=== PATIENT | female | born 1940 | race Caucasian/White ===

== ENCOUNTER 2019-06-22 08:48 | Day surgery (SDC) | payer MEDICARE, OTHER ==
[2019-06-22] MEDS ORDERED: Sodium Chloride 0.9% 1,000 ML IV SCH (09:15)
[2019-06-22] MEDS ORDERED: Propofol 200 MG/20 ML SDV ONE ×2 (09:48→10:55)
[2019-06-22] MEDS ORDERED: Midazolam 1 MG/ML 2 ML SDV ONE (09:48)
[2019-06-22] MEDS ORDERED: fentaNYL 100 MCG/2 ML SDV ONE (09:48)
[2019-06-22 12:41] VITALS: BP 130/66; PULSE 79
--- NOTE | 2019-06-22 15:11 | PROC ---
DATE OF PROCEDURE: 06/22/2019 SURGEON: Ronn Guevara MD PROCEDURE: Colonoscopy. PREPROCEDURE DIAGNOSIS: History of colon polyps. POSTPROCEDURE DIAGNOSES: 1. History of colon polyps. 2. Two small polyps at the hepatic flexure, removed using biopsy forceps. 3. Incomplete prep. DESCRIPTION OF PROCEDURE: Risk and goals of the procedure reviewed with the patient, as well as potential complications, and she gave informed consent to proceed. She was brought back to the endoscopy room. Sedation and monitoring provided by Perez Rasmussen CRNA, from the Anesthesia Service. A time-out was held prior to the procedure to confirm right site, right patient, and right procedure, as well as identify any potential concerns concerning the procedure, of which there were none. She was placed in a left lateral decubitus position. After adequate sedation was achieved, digital rectal exam was performed, which was unremarkable. Following this, a flexible colonoscope was placed and advanced out through the colon to the cecum. Cecum was identified by the appendiceal orifice as well as the ileocecal valve. The scope was then slowly withdrawn back through the length of the colon to the rectum where it was retroflexed, straightened, and removed. She was noted to have a large amount of residual liquid stool throughout the length of the colon. There were two 0.2 cm polyps noted in the hepatic flexure, both which were removed with biopsy forceps. She was noted to have internal hemorrhoids. No other mucosal polyps, masses, or lesions were seen, and the procedure was, otherwise, completed without complication. Ronn Guevara MD /[id number]
== END 2019-06-22 13:15 | disposition home or self-care (01) ==
LOC: JP.SDS 08:48
PROVIDERS: ATTEND Hospitalist
DX: Z12.11 Encounter for screening for malignant neoplasm of colon (principal); D12.3 Benign neoplasm of transverse colon; K64.8 Other hemorrhoids; I50.30 Unspecified diastolic (congestive) heart failure; I25.10 Atherosclerotic heart disease of native coronary artery without angina pectoris; K21.9 Gastro-esophageal reflux disease without esophagitis; Z86.010 Personal history of colon polyps
CPT/HCPCS: 45380; J2250; J2704; J3010; 88305

== ENCOUNTER 2019-09-14 21:05 | Emergency (ER) | payer MEDICARE ==
[2019-09-14] MEDS ORDERED: Acetaminophen 500 MG Tab PO ONE (21:45)
--- NOTE | 2019-09-14 21:51 | EDM.PDOC ---
ED HPI GENERAL MEDICAL PROBLEM - General Chief Complaint: Upper Extremity Injury/Pain Stated Complaint: FELL,HURT LEFT WRIST Time Seen by Provider: 09/14/19 21:40 Source of Information: Reports: Patient, Old Records History Limitations: Reports: No Limitations - History of Present Illness INITIAL COMMENTS - FREE TEXT/NARRATIVE: 79 yo female fell earlier today at [place] injuring her L wrist. She applied a splint to that wrist that she had at home. She walks with a cane. Lives alone. On her way into the ER tonight she fell again on stairs coming into the ER and incurred an injury to the dorsum of the R hand. Has not taken anything for pain relief. Is unsure about tetanus. Onset: Today Onset Date: 09/14/19 Duration: Hour(s):, Constant Location: Reports: Upper Extremity, Left, Upper Extremity, Right Quality: Reports: Ache Severity: Moderate Improves with: Reports: Rest Worsens with: Reports: Movement Context: Reports: Trauma Associated Symptoms: Reports: No Other Symptoms Treatments CHEF GERMAN: Reports: Other (see below) (splint) - Related Data Allergies Allergy/AdvReac Type Severity Reaction Status Date / Time iodine Allergy Other Verified 09/14/19 21:52 clindamycin AdvReac Mouth Sores Verified 09/14/19 21:52 morphine AdvReac Nausea and Verified 09/14/19 21:52 Vomiting naproxen sodium [From Aleve] AdvReac Dizziness Verified 09/14/19 21:52 procaine HCl [From Novocain] AdvReac Lightheaded Verified 09/14/19 21:52 ness Diagnostic Xray Materials AdvReac Nausea Uncoded 09/14/19 21:52 Home Meds: Home Meds Calcium Carbonate [Tums Extra Strength] 1,500 mg PO DAILY 07/09/14 [History] Cholecalciferol (Vitamin D3) [Vitamin D3] 400 units PO DAILY 07/09/14 [History] Flaxseed Oil [Flax Oil] 2,000 mg PO DAILY 07/09/14 [History] Multivitamin with Minerals [Multiple Vitamin] 1 tab PO DAILY 07/09/14 [History] Oxybutynin Chloride [Ditropan Xl] 5 mg PO DAILY 07/09/14 [History] timoloL maleate [Timoptic 0.5% Ophth Soln] 1 drop EYELF DAILY 07/08/15 [History] Aspirin [Adult Low Dose Aspirin EC] 81 mg PO DAILY 06/18/19 [History] Clobetasol [Clobetasol 0.05%] 1 dose TOP ASDIRECTED 06/18/19 [History] DULoxetine [Cymbalta] 60 mg PO DAILY 06/18/19 [History] Furosemide [Lasix] 20 mg PO ASDIRECTED 06/18/19 [History] Gabapentin [Neurontin] 100 mg PO BID 06/18/19 [History] Pantoprazole [ProTONIX] 40 mg PO DAILY 06/18/19 [History] Triamcinolone Acetonide [Triamcinolone Acetonide 0.025%] 1 dose TOP ASDIRECTED 06/18/19 [History] allopurinoL [Zyloprim] 100 mg PO DAILY 06/18/19 [History] atenoloL [Tenormin] 25 mg PO DAILY 06/18/19 [History] lisinopriL [Zestril] 2.5 mg PO DAILY 06/18/19 [History] Warfarin [Coumadin] 5 mg PO DAILY 06/22/19 [History] Past Medical History HEENT History: Reports: Cataract, Glaucoma, Impaired Vision Cardiovascular History: Reports: Blood Clots/VTE/DVT, CAD, High Cholesterol, Hypertension Respiratory History: Reports: PE Gastrointestinal History: Reports: Colon Polyp, Hemorrhoids Genitourinary History: Reports: Renal Calculus, Urinary Incontinence CARGO AGENT History: Reports: Musculoskeletal History: Reports: Arthritis, Back Pain, Chronic, Fracture, Fibromyalgia, Osteoarthritis Other Musculoskeletal History: Elbow fracture Psychiatric History: Reports: Anxiety, Depression Endocrine/Metabolic History: Reports: Obesity/BMI 30+, Osteoporosis Dermatologic History: Reports: Seborrheic Dermatitis Other Dermatologic History: Pt reports sensitive skin - Infectious Disease History Infectious Disease History: Reports: Chicken Pox, Shingles - Past Surgical History HEENT Surgical History: Reports: Cataract Surgery, Eye Surgery Cardiovascular Surgical History: Reports: None Respiratory Surgical History: Reports: None GI Surgical History: Reports: Colonoscopy Female Surgical History: Reports: Breast Biopsy, Hysterectomy Other Endocrine Surgeries/Procedures: has thyroid nodule that they are watching Musculoskeletal Surgical History: Reports: Knee Replacement Social & Family History - Family History Family Medical History: Noncontributory HEENT: Reports: None Cardiac: Reports: Hypertension Respiratory: Reports: None : Reports: Renal Disease/Insufficiency Musculoskeletal: Reports: Back pain, Chronic, Osteoporosis Neurological: Reports: Alzheimers Disease, Dementia Hematologic: Reports: Bleeding Disorder Oncologic: Reports: Breast, Prostate - Caffeine Use Caffeine Use: Reports: Coffee, Tea Review of Systems - Review of Systems Review Of Systems: See Below Constitutional: Reports: No Symptoms Musculoskeletal: Reports: Hand Pain (R hand), Joint Pain (L wrist) Skin: Reports: Wound (some minor scrapes R hand) Neurological: Reports: No Symptoms ED EXAM, GENERAL - Physical Exam Exam: See Below Exam Limited By: No Limitations General Appearance: Alert, WD/WN, No Apparent Distress Extremities: Pedal Edema (? L wrist swelling), Limited Range of Motion (L wrist due to pain. R hand with full ROM. ). No: Normal Inspection, Normal Range of Motion, Non-Tender, No Pedal Edema, Increased Warmth, Redness Neurological: Alert, Oriented, CN II-XII Intact, Normal Cognition, No Motor/ Sensory Deficits Psychiatric: Normal Affect, Normal Mood Skin Exam: Warm, Dry, Normal Color, No Rash, Wound/Incision (minor breaks in skin integrity dorsum of R hand. ) Course - Vital Signs Last Recorded V/S: Last Vital Signs Temp 36.8 C 09/14/19 22:07 Pulse 77 09/14/19 22:07 Resp 16 09/14/19 22:07 BP 134/59 L 09/14/19 22:07 Pulse Ox 100 09/14/19 22:07 - Orders/Labs/Meds Orders: Active Orders 24 hr Category Date Time Status Wrist Comp Min 3V Lt [CR] Stat Exams 09/14/19 21:15 Taken Bacitracin [Bacitracin Oint 1 GM] Med 09/14/19 22:20 Once 1 dose TOP ONETIME ONE Meds: Medications Discontinued Medications Generic Name Dose Route Start Last Admin Trade Name Freq PRN Reason Stop Dose Admin Acetaminophen 1,000 mg 09/14/19 21:45 09/14/19 21:50 Tylenol Extra Strength PO 09/14/19 21:46 1,000 mg ONETIME ONE Administration - Radiology Interpretation Free Text/Narrative:: L wrist X-ray-neg Departure - Departure Time of Disposition: 22:35 Disposition: Home, Self-Care 01 Condition: Fair Clinical Impression: Left wrist sprain Qualifiers: Encounter type: initial encounter Qualified Code(s): S63.502A - Unspecified sprain of left wrist, initial encounter Abrasion of right hand Qualifiers: Encounter type: initial encounter Qualified Code(s): S60.511A - Abrasion of right hand, initial encounter - Discharge Information *PRESCRIPTION DRUG MONITORING PROGRAM REVIEWED*: No *COPY OF PRESCRIPTION DRUG MONITORING REPORT IN PATIENT MENG: No Referrals: PCP,None [Primary Care Provider] - Forms: ED Department Discharge Additional Instructions: Wear your splint for support/protection. Take acetaminophen for pain relief as needed. A radiologist will read your X-rays tomorrow, if he sees a fracture someone will call you to make plans to refer you to an orthopedic surgeon. Keep your wounds clean to prevent infection. Sepsis Event Note - Focused Exam Vital Signs: Vital Signs Temp Pulse Resp BP Pulse Ox 09/14/19 22:07 36.8 C 77 16 134/59 L 100 Date Exam was Performed: 09/14/19 Time Exam was Performed: 22:21 - My Orders Last 24 Hours: My Active Orders 09/14/19 21:15 Wrist Comp Min 3V Lt [CR] Stat 09/14/19 22:20 Bacitracin [Bacitracin Oint 1 GM] 1 dose TOP ONETIME ONE - Assessment/Plan Last 24 Hours: My Active Orders 09/14/19 21:15 Wrist Comp Min 3V Lt [CR] Stat 09/14/19 22:20 Bacitracin [Bacitracin Oint 1 GM] 1 dose TOP ONETIME ONE
[2019-09-14 22:08] VITALS: BP 134/59; PULSE 77
[2019-09-14] MEDS ORDERED: Bacitracin Oint 1 GM U/D Packet TOP ONE (22:20)
--- NOTE | 2019-09-14 22:38 | CRLCR ---
INDICATION: Fall with wrist injury TECHNIQUE: Wrist radiograph 3 views left COMPARISON: None FINDINGS: Bone: Severe diffuse osteopenia is present. On the lateral exam, there are ill-defined osseous densities dorsal to the proximal row of the carpus. Joint: Mild chondrocalcinosis of the TFCC is seen. Mild osteoarthritis of the 1st carpometacarpal joint and scaphoid trapezial joint is seen. Soft tissue: Mild dorsal soft tissue swelling is seen along the wrist. No radiopaque foreign bodies are seen. IMPRESSION: 1. On the lateral exam, there are ill-defined osseous densities dorsal to the proximal row of the carpus. This may represent chondrocalcinosis but correlation with physical exam for focal tenderness in the dorsal ulnar region is recommended to exclude a triquetrum avulsion fracture. Dictated by Layo Gannon MD @ 09/14/2019 10:37:07 PM Dictated by: Layo Gannon MD @ 09/14/2019 22:37:10 (Electronically Signed)
== END 2019-09-14 22:48 | disposition home or self-care (01) ==
LOC: JP.ED 21:05
DX: S63.502A Unspecified sprain of left wrist, initial encounter (principal); S60.511A Abrasion of right hand, initial encounter; I25.10 Atherosclerotic heart disease of native coronary artery without angina pectoris; E78.00 Pure hypercholesterolemia, unspecified; I10 Essential (primary) hypertension; F41.9 Anxiety disorder, unspecified; F32.9 Major depressive disorder, single episode, unspecified; E66.9 Obesity, unspecified; Z88.5 Allergy status to narcotic agent; Z88.8 Allergy status to other drugs, medicaments and biological substances; Z88.1 Allergy status to other antibiotic agents; Z79.899 Other long term (current) drug therapy; Z79.01 Long term (current) use of anticoagulants; Z86.711 Personal history of pulmonary embolism; Z86.718 Personal history of other venous thrombosis and embolism; Z68.26 Body mass index [BMI] 26.0-26.9, adult; W10.9XXA Fall (on) (from) unspecified stairs and steps, initial encounter; Y92.481 Parking lot as the place of occurrence of the external cause
CPT/HCPCS: 73110; 99282; 99283; A9270

== ENCOUNTER 2019-09-15 20:28 | Observation (INO) | payer MEDICARE ==
[2019-09-15] MEDS ORDERED: Acetaminophen 325 MG Tab PO ONE (21:49)
--- NOTE | 2019-09-15 21:50 | EDM.PDOC ---
ED HPI GENERAL MEDICAL PROBLEM - General Chief Complaint: Upper Extremity Injury/Pain Stated Complaint: MEDICAL VIA [facility] Time Seen by Provider: 09/15/19 21:45 Source of Information: Reports: Patient History Limitations: Reports: No Limitations - History of Present Illness INITIAL COMMENTS - FREE TEXT/NARRATIVE: pt has fallen 3 times in the last 24 hours. The first time she fell when she was in the basement of [employer]. She had her wrist injured at that time. She was on the way in to the hosp and she fell and landed on her left hip. Tonight she was coming down the [place] at her house and she fell. Onset: Today Duration: Hour(s): Location: Reports: Other ( she really does not know why she is falling. r) Quality: Reports: Sharp, Stabbing Associated Symptoms: Reports: Weakness left wrist Pain Score (Numeric/FACES): 8 - Related Data Allergies Allergy/AdvReac Type Severity Reaction Status Date / Time iodine Allergy Other Verified 09/15/19 20:45 clindamycin AdvReac Mouth Sores Verified 09/15/19 20:45 morphine AdvReac Nausea and Verified 09/15/19 20:45 Vomiting naproxen sodium [From Aleve] AdvReac Dizziness Verified 09/15/19 20:45 procaine HCl [From Novocain] AdvReac Lightheaded Verified 09/15/19 20:45 ness Diagnostic Xray Materials AdvReac Nausea Uncoded 09/15/19 20:45 Home Meds: Home Meds Calcium Carbonate [Tums Extra Strength] 1,500 mg PO DAILY 07/09/14 [History] Cholecalciferol (Vitamin D3) [Vitamin D3] 400 units PO DAILY 07/09/14 [History] Flaxseed Oil [Flax Oil] 2,000 mg PO DAILY 07/09/14 [History] Multivitamin with Minerals [Multiple Vitamin] 1 tab PO DAILY 07/09/14 [History] Oxybutynin Chloride [Ditropan Xl] 5 mg PO DAILY 07/09/14 [History] timoloL maleate [Timoptic 0.5% Ophth Soln] 1 drop EYELF DAILY 07/08/15 [History] Aspirin [Adult Low Dose Aspirin EC] 81 mg PO DAILY 06/18/19 [History] Clobetasol [Clobetasol 0.05%] 1 dose TOP ASDIRECTED 06/18/19 [History] DULoxetine [Cymbalta] 60 mg PO DAILY 06/18/19 [History] Furosemide [Lasix] 20 mg PO ASDIRECTED 06/18/19 [History] Gabapentin [Neurontin] 100 mg PO BID 06/18/19 [History] Pantoprazole [ProTONIX] 40 mg PO DAILY 06/18/19 [History] Triamcinolone Acetonide [Triamcinolone Acetonide 0.025%] 1 dose TOP ASDIRECTED 06/18/19 [History] allopurinoL [Zyloprim] 100 mg PO DAILY 06/18/19 [History] atenoloL [Tenormin] 25 mg PO DAILY 06/18/19 [History] lisinopriL [Zestril] 2.5 mg PO DAILY 06/18/19 [History] Warfarin [Coumadin] 5 mg PO DAILY 06/22/19 [History] Past Medical History HEENT History: Reports: Cataract, Glaucoma, Impaired Vision Cardiovascular History: Reports: Blood Clots/VTE/DVT, CAD, High Cholesterol, Hypertension Respiratory History: Reports: PE Gastrointestinal History: Reports: Colon Polyp, Hemorrhoids Genitourinary History: Reports: Renal Calculus, Urinary Incontinence TILER History: Reports: Musculoskeletal History: Reports: Arthritis, Back Pain, Chronic, Fracture, Fibromyalgia, Osteoarthritis Other Musculoskeletal History: Elbow fracture Psychiatric History: Reports: Anxiety, Depression Endocrine/Metabolic History: Reports: Obesity/BMI 30+, Osteoporosis Hematologic History: Reports: Anticoagulation Therapy, Blood Transfusion(s) Dermatologic History: Reports: Seborrheic Dermatitis Other Dermatologic History: Pt reports sensitive skin - Infectious Disease History Infectious Disease History: Reports: Chicken Pox, Shingles - Past Surgical History HEENT Surgical History: Reports: Cataract Surgery, Eye Surgery Cardiovascular Surgical History: Reports: None Respiratory Surgical History: Reports: None GI Surgical History: Reports: Colonoscopy Female Surgical History: Reports: Breast Biopsy, Hysterectomy Other Endocrine Surgeries/Procedures: has thyroid nodule that they are watching Musculoskeletal Surgical History: Reports: Knee Replacement Social & Family History - Family History Family Medical History: Noncontributory HEENT: Reports: None Cardiac: Reports: Hypertension Respiratory: Reports: None : Reports: Renal Disease/Insufficiency Musculoskeletal: Reports: Back pain, Chronic, Osteoporosis Neurological: Reports: Alzheimers Disease, Dementia Hematologic: Reports: Bleeding Disorder Oncologic: Reports: Breast, Prostate - Tobacco Use Smoking Status *Q: Former Smoker Used Tobacco, but Quit: Yes Month/Year Tobacco Last Used: 20 years - Caffeine Use Caffeine Use: Reports: Coffee, Tea - Recreational Drug Use Recreational Drug Use: No Review of Systems - Review of Systems Review Of Systems: See Below Constitutional: Reports: No Symptoms Eyes: Reports: No Symptoms Ears: Reports: No Symptoms Nose: Reports: No Symptoms Mouth/Throat: Reports: No Symptoms Respiratory: Reports: No Symptoms Cardiovascular: Reports: No Symptoms GI/Abdominal: Reports: No Symptoms Genitourinary: Reports: No Symptoms Musculoskeletal: Reports: Other (pain left wrist and the left hip. ) Neurological: Reports: Other (pt has fell 3 times in the last 24 hours. ) Psychiatric: Reports: No Symptoms ED EXAM, GENERAL - Physical Exam Exam: See Below Free Text/Narrative:: pt is alert and able to give a good hiostory. She just does not understand why she is falling so much. Exam Limited By: No Limitations General Appearance: Alert, Anxious, Mild Distress, Other ( pupils are equal and reactive. ) Ears: Normal TMs Nose: Normal Inspection Throat/Mouth: Normal Inspection Head: Atraumatic Neck: Normal Inspection Respiratory/Chest: No Respiratory Distress Cardiovascular: Regular Rate, Rhythm GI/Abdominal: Soft, Non-Tender (Female) Exam: Deferred Rectal (Female) Exam: Deferred Back Exam: Normal Inspection Extremities: Normal Inspection Neurological: Alert, Oriented, Normal Cognition Psychiatric: Anxious Course - Vital Signs Last Recorded V/S: Last Vital Signs Temp 36.6 C 09/15/19 20:37 Pulse 72 09/15/19 20:37 Resp 16 09/15/19 20:37 BP 151/48 H 09/15/19 20:37 Pulse Ox 100 09/15/19 20:37 - Orders/Labs/Meds Orders: Active Orders 24 hr Category Date Time Status Cardiac Monitoring [RC] .As Directed Care 09/15/19 21:45 Active Orthostatic Vital Signs [RC] ASDIRECTED Care 09/15/19 21:46 Active INR,PT,PROTHROMBIN TIME [COAG] Stat Lab 09/15/19 23:44 Ordered Labs: Laboratory Tests 09/15/19 09/15/19 09/15/19 Range/Units 21:30 21:30 21:30 WBC 10.4 (4.5-11.0) K/uL RBC 2.95 L (3.30-5.50) M/uL Hgb 9.2 L D (12.0-15.0) g/dL Hct 27.7 L (36.0-48.0) % MCV 94 (80-98) fL MCH 31 (27-31) pg MCHC 33 (32-36) % Plt Count 227 (150-400) K/uL Neut % (Auto) 83 H (36-66) % Lymph % (Auto) 10 L (24-44) % [place] % (Auto) 6 (2-6) % Eos % (Auto) 1 L (2-4) % Baso % (Auto) 0 (0-1) % Sodium 137 L (140-148) mmol/L Potassium 3.8 (3.6-5.2) mmol/L Chloride 103 (100-108) mmol/L Carbon Dioxide 25 (21-32) mmol/L Anion Gap 12.8 (5.0-14.0) mmol/L BUN 22 H (7-18) mg/dL Creatinine 1.0 (0.6-1.0) mg/dL Est Cr Clr Drug Dosing 42.56 mL/min Estimated GFR (MDRD) 54 L (>60) Glucose 110 H (74-106) mg/dL Calcium 8.8 (8.5-10.1) mg/dL Iron 20 L (50-170) ug/dL TIBC 228 L (250-450) ug/dl % Saturation 9 L (20-55) % Total Bilirubin 0.9 D (0.2-1.0) mg/dL AST 15 (15-37) U/L ALT 16 (12-78) U/L Alkaline Phosphatase 60 (46-116) U/L Total Protein 6.3 L (6.4-8.2) g/dL Albumin 3.0 L (3.4-5.0) g/dL Globulin 3.3 (2.3-3.5) g/dL Albumin/Globulin Ratio 0.9 L (1.2-2.2) Urine Color (YELLOW) Urine Appearance (CLEAR) Urine pH (5.0-8.0) Ur Specific [place] (1.008-1.030) Urine Protein (NEGATIVE) mg/dL Urine Glucose (UA) (NEGATIVE) mg/dL Urine Ketones (NEGATIVE) mg/dL Urine Occult Blood (NEGATIVE) Urine Nitrite (NEGATIVE) Urine Bilirubin (NEGATIVE) Urine Urobilinogen (0.2-1.0) EU/dL Ur Leukocyte Esterase (NEGATIVE) Urine RBC (0-5) Urine WBC (0-5) Ur Epithelial Cells Amorphous Sediment Urine Bacteria Urine Mucus Urine Other 09/15/19 Range/Units 23:02 WBC (4.5-11.0) K/uL RBC (3.30-5.50) M/uL Hgb (12.0-15.0) g/dL Hct (36.0-48.0) % MCV (80-98) fL MCH (27-31) pg MCHC (32-36) % Plt Count (150-400) K/uL Neut % (Auto) (36-66) % Lymph % (Auto) (24-44) % [place] % (Auto) (2-6) % Eos % (Auto) (2-4) % Baso % (Auto) (0-1) % Sodium (140-148) mmol/L Potassium (3.6-5.2) mmol/L Chloride (100-108) mmol/L Carbon Dioxide (21-32) mmol/L Anion Gap (5.0-14.0) mmol/L BUN (7-18) mg/dL Creatinine (0.6-1.0) mg/dL Est Cr Clr Drug Dosing mL/min Estimated GFR (MDRD) (>60) Glucose (74-106) mg/dL Calcium (8.5-10.1) mg/dL Iron (50-170) ug/dL TIBC (250-450) ug/dl % Saturation (20-55) % Total Bilirubin (0.2-1.0) mg/dL AST (15-37) U/L ALT (12-78) U/L Alkaline Phosphatase (46-116) U/L Total Protein (6.4-8.2) g/dL Albumin (3.4-5.0) g/dL Globulin (2.3-3.5) g/dL Albumin/Globulin Ratio (1.2-2.2) Urine Color Yellow (YELLOW) Urine Appearance Slightly cloudy A (CLEAR) Urine pH 6.0 (5.0-8.0) Ur Specific [place] 1.020 (1.008-1.030) Urine Protein Negative (NEGATIVE) mg/dL Urine Glucose (UA) Negative (NEGATIVE) mg/dL Urine Ketones Negative (NEGATIVE) mg/dL Urine Occult Blood Negative (NEGATIVE) Urine Nitrite Negative (NEGATIVE) Urine Bilirubin Negative (NEGATIVE) Urine Urobilinogen 1.0 (0.2-1.0) EU/dL Ur Leukocyte Esterase Small H (NEGATIVE) Urine RBC 0-5 (0-5) Urine WBC 0-5 (0-5) Ur Epithelial Cells Few Amorphous Sediment Not seen Urine Bacteria Few Urine Mucus Not seen Urine Other Meds: Medications Discontinued Medications Generic Name Dose Route Start Last Admin Trade Name Freq PRN Reason Stop Dose Admin Acetaminophen 650 mg 09/15/19 21:49 09/15/19 22:03 Tylenol PO 09/15/19 21:50 650 mg NOW ONE Administration - Re-Assessments/Exams Free Text/Narrative Re-Assessment/Exam: 09/15/19 23:52 pt had a cat scan of the head that was normal. She is having alot of difficulty moving. She has a large hematoma of her left hip but she dioes not have a fracture of the left hip or pelvis. She has alot of swelling in the left wrist area. She was seen last nite and was told she had a sprain and was placed in a splint. pt ids having major drops in her bp with standiong and may have the need for medication readjustment. She does live alone and she can not go home until she is more stable. Ortho needs to see her fractured wrist and care for it. She is alos anemic and is iron deficient. Departure - Departure Time of Disposition: 00:02 Disposition: Admitted As Inpatient 67 Condition: Fair Clinical Impression: Orthostatic hypotension, Anemia, Iron deficiency, Fracture of distal end of left radius, Fracture of ulnar styloid, Hematoma of left hip, Elevated INR - Discharge Information Referrals: PCP,None [Primary Care Provider] - Forms: ED Department Discharge Care Plan Goals: admit to Dr Gonsalez. Sepsis Event Note - Evaluation Sepsis Screening Result: No Definite Risk - Focused Exam Vital Signs: Vital Signs Temp Pulse Resp BP Pulse Ox 09/15/19 20:37 36.6 C 72 16 151/48 H 100 09/15/19 20:31 36.6 C 72 16 151/48 H 100 Date Exam was Performed: 09/15/19 Time Exam was Performed: 23:46 - My Orders Last 24 Hours: My Active Orders 09/15/19 21:45 Cardiac Monitoring [RC] .As Directed 09/15/19 21:46 Orthostatic Vital Signs [RC] ASDIRECTED 09/15/19 23:44 INR,PT,PROTHROMBIN TIME [COAG] Stat - Assessment/Plan Last 24 Hours: My Active Orders 09/15/19 21:45 Cardiac Monitoring [RC] .As Directed 09/15/19 21:46 Orthostatic Vital Signs [RC] ASDIRECTED 09/15/19 23:44 INR,PT,PROTHROMBIN TIME [COAG] Stat
--- NOTE | 2019-09-15 22:51 | CRLCT ---
INDICATION: head injury from falls TECHNIQUE: CT Head without i.v. contrast. COMPARISON: None FINDINGS: CSF space: Unremarkable for age. Brain: No evidence of mass, acute infarction or hemorrhage is seen. No mass-effect or midline shift is seen. Mild diffuse cortical atrophy is noted. The brain parenchyma is otherwise normal in appearance with preservation of the harden-white matter junction. Calvarium: The visualized paranasal sinuses are well aerated. The mastoid air cells are clear. The visualized orbits are grossly unremarkable. The calvarium is unremarkable in appearance with no fractures identified. IMPRESSION: 1. No evidence of acute infarction, intracranial hemorrhage, or mass-effect seen. Please note that all CT scans at this facility use dose modulation, iterative reconstruction, and/or weight-based dosing when appropriate to reduce radiation dose to as low as reasonably achievable. Dictated by: Layo Gannon MD @ 09/15/2019 22:50:23 (Electronically Signed)
--- NOTE | 2019-09-15 22:55 | CRLCT ---
INDICATION: Wrist pain with recent falls. COMPARISON: Plain film 14 Sep 2019. TECHNIQUE: Multi detector imaging centered on the left wrist with axial coronal and sagittal reformats. FINDINGS: Osteopenia. Acute to subacute appearing curvilinear fracture through the base of the radial styloid entering the radiocarpal joint at the scaphoid fossa. No step-off or significant articular cortex diastasis. Diffuse prominent stippled mineralization of synovium through the radiocarpal joint, intrinsic ligaments and intercarpal articulation of the wrist. Moderately severe osteoarthritis narrowing, radial subluxation osteophytes and small juxta-articular ossicles of the 1st carpal metacarpal joint. Slightly widened triscaphe joint with subarticular sclerosis in all 3 articulating bones. Some intervening hazy mineralized synovium. No definite erosions. Mild diffuse subcutaneous soft tissue edema. No focal hematoma. No evident mass. IMPRESSION: 1. Acute to subacute nondisplaced fracture of the radial styloid with intra-articular extension of the radiocarpal joint. 2. 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 3. Osteopenia. 4. Severe osteoarthritis 1st carpometacarpal joint. Please note that all CT scans at this facility use dose modulation, iterative reconstruction, and/or weight-based dosing when appropriate to reduce radiation dose to as low as reasonably achievable. Dictated by Benjy Vásquez MD @ Sep 16 2019 8:38AM Signed by Dr. Benjy Vásquez @ Sep 16 2019 8:42AM
--- NOTE | 2019-09-15 22:57 | CRLCR ---
Indication: Frequent falls, bruising and large hematoma over left hip Technique: Frontal view of the pelvis and two views of the left hip. Comparison: None Findings: The pelvic ring and proximal femora are intact. The right femoroacetabular joint is anatomically aligned. There is stranding of the subcutaneous tissues overlying the left proximal femur, likely representing edema and hematoma. Impression : No evidence of pelvic or proximal femoral fracture. Dictated by Aston Cardona MD @ Sep 15 2019 10:51PM Signed by Dr. Aston Cardona @ Sep 15 2019 10:55PM
[2019-09-16] MEDS ORDERED: Sodium Chloride 0.9% 1,000 ML IV SCH
--- NOTE | 2019-09-16 01:41 | PCM.HP.2 ---
H&P History of Present Illness - General Date of Service: 09/16/19 Admit Problem/Dx: Admission Diagnosis/Problem Admission Diagnosis/Problem Syncope Source of Information: Patient, Provider History Limitations: Reports: No Limitations - History of Present Illness Initial Comments - Free Text/Narative: CC: I got so dizzy HPI: Wanda presents to the emergency room today after an episode of syncope. This was her third fall in the past 24 hours. The first fall yesterday did not have preceding symptoms. She thinks she may have lost her balance. She had a second 1 yesterday when trying to climb the stairs and blames this just on not holding onto the railing. She did sustain a left wrist injury with the first fall and a left hip injury with a second fall. X-ray imaging of the left wrist was thought to be negative last night. She did sustain a hematoma to the left hip last night. Today she had a fall at home. After getting out of bed she became very dizzy and collapsed on the floor. She did not hit her head and did not lose consciousness. She continues to have moderate achy pain in the left wrist. This is worse anytime she tries to lift or carry anything. She has been using Tylenol with some improvement in the pain. Pain is not getting any better. No complaints of headache, shortness of breath, abdominal pain or nausea. Work-up in the emergency room revealed no evidence for fracture of the left hip or pelvis. A CT scan of the left wrist revealed a fracture of the distal radius. Laboratory studies fairly unremarkable. Orthostatic vital signs were positive with a significant drop in blood pressure and rise in heart rate with standing. She will be admitted for hydration and monitoring of her vital signs as well as orthopedic consultation. left wrist Pain Score (Numeric/FACES): 8 - Related Data Allergies/Adverse Reactions: Allergies Allergy/AdvReac Type Severity Reaction Status Date / Time iodine Allergy Other Verified 09/15/19 20:45 clindamycin AdvReac Mouth Sores Verified 09/15/19 20:45 morphine AdvReac Nausea and Verified 09/15/19 20:45 Vomiting naproxen sodium [From Aleve] AdvReac Dizziness Verified 09/15/19 20:45 procaine HCl [From Novocain] AdvReac Lightheaded Verified 09/15/19 20:45 ness Diagnostic Xray Materials AdvReac Nausea Uncoded 05/19/20 20:45 Home Medications: Home Meds Calcium Carbonate [Tums Extra Strength] 1,500 mg PO DAILY 07/09/14 [History] Cholecalciferol (Vitamin D3) [Vitamin D3] 400 units PO DAILY 07/09/14 [History] Flaxseed Oil [Flax Oil] 2,000 mg PO DAILY 07/09/14 [History] Multivitamin with Minerals [Multiple Vitamin] 1 tab PO DAILY 07/09/14 [History] Oxybutynin Chloride [Ditropan Xl] 5 mg PO DAILY 07/09/14 [History] timoloL maleate [Timoptic 0.5% Ophth Soln] 1 drop EYELF DAILY 07/08/15 [History] Aspirin [Adult Low Dose Aspirin EC] 81 mg PO DAILY 06/18/19 [History] Clobetasol [Clobetasol 0.05%] 1 dose TOP ASDIRECTED 06/18/19 [History] DULoxetine [Cymbalta] 60 mg PO DAILY 06/18/19 [History] Furosemide [Lasix] 20 mg PO ASDIRECTED 06/18/19 [History] Gabapentin [Neurontin] 100 mg PO BID 06/18/19 [History] Pantoprazole [ProTONIX] 40 mg PO DAILY 06/18/19 [History] Triamcinolone Acetonide [Triamcinolone Acetonide 0.025%] 1 dose TOP ASDIRECTED 06/18/19 [History] allopurinoL [Zyloprim] 100 mg PO DAILY 06/18/19 [History] lisinopriL [Zestril] 2.5 mg PO DAILY 06/18/19 [History] Warfarin [Coumadin] 5 mg PO DAILY 06/22/19 [History] Spironolactone [Aldactone] 12.5 mg PO DAILY 09/16/19 [History] Past Medical History HEENT History: Reports: Cataract, Glaucoma, Impaired Vision Cardiovascular History: Reports: Blood Clots/VTE/DVT, CAD, High Cholesterol, Hypertension Respiratory History: Reports: PE Gastrointestinal History: Reports: Colon Polyp, Hemorrhoids Genitourinary History: Reports: Renal Calculus, Urinary Incontinence [employer] History: Reports: Musculoskeletal History: Reports: Arthritis, Back Pain, Chronic, Fracture, Fibromyalgia, Osteoarthritis Other Musculoskeletal History: Elbow fracture Psychiatric History: Reports: Anxiety, Depression Endocrine/Metabolic History: Reports: Obesity/BMI 30+, Osteoporosis Hematologic History: Reports: Anticoagulation Therapy, Blood Transfusion(s) Dermatologic History: Reports: Seborrheic Dermatitis Other Dermatologic History: Pt reports sensitive skin - Infectious Disease History Infectious Disease History: Reports: Chicken Pox, Shingles - Past Surgical History HEENT Surgical History: Reports: Cataract Surgery, Eye Surgery Cardiovascular Surgical History: Reports: None Respiratory Surgical History: Reports: None GI Surgical History: Reports: Colonoscopy Female Surgical History: Reports: Breast Biopsy, Hysterectomy Other Endocrine Surgeries/Procedures: has thyroid nodule that they are watching Musculoskeletal Surgical History: Reports: Knee Replacement Social & Family History - Family History Family Medical History: Noncontributory HEENT: Reports: None Cardiac: Reports: Hypertension Respiratory: Reports: None : Reports: Renal Disease/Insufficiency Musculoskeletal: Reports: Back pain, Chronic, Osteoporosis Neurological: Reports: Alzheimers Disease, Dementia Hematologic: Reports: Bleeding Disorder Oncologic: Reports: Breast, Prostate - Tobacco Use Smoking Status *Q: Former Smoker Used Tobacco, but Quit: Yes Month/Year Tobacco Last Used: 20 years - Caffeine Use Caffeine Use: Reports: Coffee, Tea - Recreational Drug Use Recreational Drug Use: No H&P Review of Systems - Review of Systems: Review Of Systems: See Below Free Text/Narrative: A complete 12 point review of systems was obtained. Pertinent positives and negatives are noted in the history of present illness. All other systems were reviewed and were negative except as noted. Exam - Exam Exam: See Below - Vital Signs Vital Signs: Last Vital Signs Temp 36.6 C 09/15/19 20:37 Pulse 72 09/15/19 20:37 Resp 16 09/15/19 20:37 BP 151/48 H 09/15/19 20:37 Pulse Ox 100 09/15/19 20:37 Orthostatic Blood Pressure [ 88/55 Standing] Orthostatic Blood Pressure [ 118/60 Sitting] Orthostatic Blood Pressure [ 127/62 Supine] Weight: 72.575 kg - Exam Quality Assessment: No: Supplemental Oxygen General: Alert, Oriented, Cooperative. No: Mild Distress HEENT: Conjunctiva Clear, Mucosa Moist & [place]. No: Scleral Icterus Neck: Supple, Trachea Midline Lungs: Clear to Auscultation, Normal Respiratory Effort Cardiovascular: Regular Rate, Regular Rhythm, Systolic Murmur GI/Abdominal Exam: Normal Bowel Sounds, Soft, Non-Tender, No Distention Extremities: No Pedal Edema. No: Increased Warmth Peripheral Pulses: 2+: Dorsalis Pedis (L), Dorsalis Pedis (R) Skin: Warm, Dry, Ecchymosis (Right elbow, left hand, right third finger, large hematoma left hip, approximately 10 x 12 cm with overlying bruise) Neuro Extensive - Mental Status: Alert, Oriented x3, Nl Response to Commands Neuro Extensive - Motor, Sensory, Reflexes: No: Dysarthria, Abnormal Motor, Tremor Psychiatric: Alert, Normal Affect - Patient Data Lab Results Last 24 hrs: Laboratory Results - last 24 hr 09/15/19 09/15/19 09/15/19 Range/Units 21:30 21:30 21:30 WBC 10.4 (4.5-11.0) K/uL RBC 2.95 L (3.30-5.50) M/uL Hgb 9.2 L D (12.0-15.0) g/dL Hct 27.7 L (36.0-48.0) % MCV 94 (80-98) fL MCH 31 (27-31) pg MCHC 33 (32-36) % Plt Count 227 (150-400) K/uL Neut % (Auto) 83 H (36-66) % Lymph % (Auto) 10 L (24-44) % [place] % (Auto) 6 (2-6) % Eos % (Auto) 1 L (2-4) % Baso % (Auto) 0 (0-1) % PT (9.5-12.0) sec INR (0.80-1.20) Sodium 137 L (140-148) mmol/L Potassium 3.8 (3.6-5.2) mmol/L Chloride 103 (100-108) mmol/L Carbon Dioxide 25 (21-32) mmol/L Anion Gap 12.8 (5.0-14.0) mmol/L BUN 22 H (7-18) mg/dL Creatinine 1.0 (0.6-1.0) mg/dL Est Cr Clr Drug Dosing 42.56 mL/min Estimated GFR (MDRD) 54 L (>60) Glucose 110 H (74-106) mg/dL Calcium 8.8 (8.5-10.1) mg/dL Iron 20 L (50-170) ug/dL TIBC 228 L (250-450) ug/dl % Saturation 9 L (20-55) % Total Bilirubin 0.9 D (0.2-1.0) mg/dL AST 15 (15-37) U/L ALT 16 (12-78) U/L Alkaline Phosphatase 60 (46-116) U/L Total Protein 6.3 L (6.4-8.2) g/dL Albumin 3.0 L (3.4-5.0) g/dL Globulin 3.3 (2.3-3.5) g/dL Albumin/Globulin Ratio 0.9 L (1.2-2.2) Urine Color (YELLOW) Urine Appearance (CLEAR) Urine pH (5.0-8.0) Ur Specific [place] (1.008-1.030) Urine Protein (NEGATIVE) mg/dL Urine Glucose (UA) (NEGATIVE) mg/dL Urine Ketones (NEGATIVE) mg/dL Urine Occult Blood (NEGATIVE) Urine Nitrite (NEGATIVE) Urine Bilirubin (NEGATIVE) Urine Urobilinogen (0.2-1.0) EU/dL Ur Leukocyte Esterase (NEGATIVE) Urine RBC (0-5) Urine WBC (0-5) Ur Epithelial Cells Amorphous Sediment Urine Bacteria Urine Mucus Urine Other 09/15/19 09/15/19 Range/Units 22:30 23:02 WBC (4.5-11.0) K/uL RBC (3.30-5.50) M/uL Hgb (12.0-15.0) g/dL Hct (36.0-48.0) % MCV (80-98) fL MCH (27-31) pg MCHC (32-36) % Plt Count (150-400) K/uL Neut % (Auto) (36-66) % Lymph % (Auto) (24-44) % [place] % (Auto) (2-6) % Eos % (Auto) (2-4) % Baso % (Auto) (0-1) % PT 40.0 H (9.5-12.0) sec INR 4.01 H* (0.80-1.20) Sodium (140-148) mmol/L Potassium (3.6-5.2) mmol/L Chloride (100-108) mmol/L Carbon Dioxide (21-32) mmol/L Anion Gap (5.0-14.0) mmol/L BUN (7-18) mg/dL Creatinine (0.6-1.0) mg/dL Est Cr Clr Drug Dosing mL/min Estimated GFR (MDRD) (>60) Glucose (74-106) mg/dL Calcium (8.5-10.1) mg/dL Iron (50-170) ug/dL TIBC (250-450) ug/dl % Saturation (20-55) % Total Bilirubin (0.2-1.0) mg/dL AST (15-37) U/L ALT (12-78) U/L Alkaline Phosphatase (46-116) U/L Total Protein (6.4-8.2) g/dL Albumin (3.4-5.0) g/dL Globulin (2.3-3.5) g/dL Albumin/Globulin Ratio (1.2-2.2) Urine Color Yellow (YELLOW) Urine Appearance Slightly cloudy A (CLEAR) Urine pH 6.0 (5.0-8.0) Ur Specific [place] 1.020 (1.008-1.030) Urine Protein Negative (NEGATIVE) mg/dL Urine Glucose (UA) Negative (NEGATIVE) mg/dL Urine Ketones Negative (NEGATIVE) mg/dL Urine Occult Blood Negative (NEGATIVE) Urine Nitrite Negative (NEGATIVE) Urine Bilirubin Negative (NEGATIVE) Urine Urobilinogen 1.0 (0.2-1.0) EU/dL Ur Leukocyte Esterase Small H (NEGATIVE) Urine RBC 0-5 (0-5) Urine WBC 0-5 (0-5) Ur Epithelial Cells Few Amorphous Sediment Not seen Urine Bacteria Few Urine Mucus Not seen Urine Other Result Diagrams: 09/15/19 21:30 09/15/19 21:30 Imaging Impressions Last 24 hrs: Head CT-no acute findings Left wrist CT-images were personally reviewed-there is evidence for a fracture of the left distal radius Pelvis x-ray with femurs-no evidence for hip or pelvis fracture Sepsis Event Note - Evaluation Sepsis Screening Result: No Definite Risk - Focused Exam Vital Signs: Vital Signs Temp Pulse Resp BP Pulse Ox 09/15/19 20:37 36.6 C 72 16 151/48 H 100 09/15/19 20:31 36.6 C 72 16 151/48 H 100 Date Exam was Performed: 09/16/19 Time Exam was Performed: 01:36 *Q Meaningful Use (ADM) - VTE Risk Assess *Q Each Risk Factor Represents 1 Point: Obesity ( BMI > 25 kg/m2) Total Score 1 Point Risk Factors: 1 Each Risk Factor Represents 2 Points: None Total Score 2 Point Risk Factors: 0 Each Risk Factor Represents 3 Points: Age 75 Years or Greater, History of DVT/PE Total Score 3 Point Risk Factors: 6 Each Risk Factor Represents 5 Points: None Total Score 5 Point Risk Factors: 0 Venous Thromboembolism Risk Factor Score *Q: 7 - Problem List (1) Syncope and collapse SNOMED Code(s): 705740331 ICD Code: R55 - SYNCOPE AND COLLAPSE Status: Acute Current Visit: Yes (2) Orthostatic hypotension SNOMED Code(s): 64103442 ICD Code: I95.1 - ORTHOSTATIC HYPOTENSION Status: Acute Current Visit: Yes (3) Hematoma of left hip SNOMED Code(s): 95297844845818120 ICD Code: S70.02XA - CONTUSION OF LEFT HIP, INITIAL ENCOUNTER Status: Acute Current Visit: Yes Qualifiers: Encounter type: initial encounter Qualified Code(s): S70.02XA - Contusion of left hip, initial encounter (4) Anemia due to blood loss, acute SNOMED Code(s): 404283358 ICD Code: D62 - ACUTE POSTHEMORRHAGIC ANEMIA Status: Acute Current Visit : Yes (5) Fracture of distal end of left radius SNOMED Code(s): 991101444 ICD Code: S52.502A - UNSP FRACTURE OF THE LOWER END OF LEFT RADIUS, INIT Status: Acute Current Visit: Yes Qualifiers: Encounter type: initial encounter Fracture type: closed Fracture morphology: unspecified fracture morphology Qualified Code(s): S52.502A - Unspecified fracture of the lower end of left radius, initial encounter for closed fracture (6) Elevated INR SNOMED Code(s): 170926254 ICD Code: R79.1 - ABNORMAL COAGULATION PROFILE Status: Acute Current Visit: Yes Problem List Initiated/Reviewed/Updated: Yes Orders Last 24hrs: Active Orders 24 hr Category Date Time Status Patient Status Manage Transfer [TRANSFER] Routine ADT 09/16/19 01:29 Ordered Cardiac Monitoring [RC] .As Directed Care 09/15/19 21:45 Active EKG Documentation Completion [RC] ASDIRECTED Care 09/15/19 23:47 Active Orthostatic Vital Signs [RC] ASDIRECTED Care 09/15/19 21:46 Active TSH ULTRASENSITIVE [CHEM] Stat Lab 09/15/19 23:56 Ordered Sodium Chloride 0.9% [Normal Saline] 1,000 ml Med 09/16/19 00:00 Active IV ASDIRECTED Resuscitation Status Routine Resus Stat 09/16/19 01:30 Ordered EKG 12 Lead [EK] Routine Ther 09/15/19 23:47 Ordered Medication Orders Sodium Chloride (Normal Saline) 1,000 mls @ 300 mls/hr IV ASDIRECTED FLOYD Stop: 09/16/19 03:19 Last Admin: 09/16/19 01:31 Dose: 300 mls/hr Assessment/Plan Comment:: ASSESSMENT AND PLAN - Syncope and collapse-secondary to orthostatic hypotension. I suspect this is related to her use of diuretics recently. No evidence for infection. Could be contribution from fluid losses well. -1 L of IV fluids -Discontinue diuretics -Hemoglobin in the morning -Repeat orthostatic vital signs in the morning Left hip hematoma-secondary to fall and complicated by anemia due to blood loss. Pain tolerable. -Pain control -Hemoglobin in the morning Left distal radius fracture-secondary to fall yesterday. X-ray yesterday was read as normal but CT scan did not definitively show a fracture today. -Continue splint for tonight -Consult with orthopedic clinic in the morning for splinting/casting History of bilateral pulmonary emboli-chronically anticoagulated. INR still elevated. -Hold warfarin today and recheck INR Essential hypertension-blood pressure normal but with significant orthostatic change we will need to make some changes to her regimen. To start with we will stop the spironolactone. Maintenance issues - - DVT prophylaxis -warfarin - GI prophylaxis -PPI - Nutrition -regular - Khan catheter -not indicated CODE STATUS -full code Admission justification -patient will be referred observation status for symptomatic management, repeat orthostatic vital signs, orthopedic consultation Disposition -I would anticipate discharge home after the hospital stay Primary care physician -Dr Christian Gonsalez M.D. - Mortality Measure Prognosis:: Good
[2019-09-16] MEDS ORDERED: Ondansetron 4 MG/2 ML SDV IV PRN (01:53)
[2019-09-16] MEDS ORDERED: Magnesium Hydroxide 400 MG/5 ML Susp 30 ML Cup PO PRN (01:53)
[2019-09-16] MEDS ORDERED: traMADol 50 MG Tab PO PRN (01:53)
[2019-09-16] MEDS ORDERED: Ondansetron 4 MG Tab.DIS PO PRN (01:53)
[2019-09-16] MEDS ORDERED: LORazepam 2 MG/ML SDV IVPUSH PRN (01:53)
[2019-09-16] MEDS ORDERED: Melatonin 3 MG Tab PO PRN (01:53)
[2019-09-16] MEDS: GABAPENTIN 100 MG PO SCH ×2 (08:03→21:02)
[2019-09-16] MEDS: Oxybutynin 5 MG Tab PO SCH ×2 (08:03→21:02)
[2019-09-16] MEDS: Allopurinol 100 MG Tab PO SCH (08:03)
[2019-09-16] MEDS: Aspirin 81 MG Tab.EC PO SCH (08:03)
[2019-09-16] MEDS: DULoxetine 30 MG Cap PO SCH (08:04)
[2019-09-16] MEDS: Pantoprazole 40 MG Tab.CR PO SCH (08:04)
[2019-09-16] MEDS ORDERED: Timolol Maleate 0.5% Ophth Soln 5 ML Bottle EYELF SCH (09:00)
[2019-09-16] MEDS ORDERED: Non-Formulary Medication 1 Each (Warfarin [Coumadin] 5 MG) PO SCH (09:00)
[2019-09-16] MEDS: Timolol Maleate 0.5% Ophth Soln 5 ML Bottle EYELF SCH (11:33)
--- NOTE | 2019-09-16 15:19 | PCM.PN ---
- General Info Date of Service: 09/16/19 Subjective Update: No acute events since admission. Vital signs stable. Mild dizziness when standing but not as severe as yesterday. Some left wrist pain but this is a little better. Some bilateral hip pain but this is better. Still has large hematomas on both hips. Hemoglobin did drop down to 7.8. Functional Status: Reports: Pain Controlled, Tolerating Diet - Patient Data Vitals - Most Recent: Last Vital Signs Temp 37.2 C 09/16/19 14:50 Pulse 93 09/16/19 14:50 Resp 18 09/16/19 14:50 BP 111/45 L 09/16/19 14:50 Pulse Ox 94 L 09/16/19 14:50 Orthostatic Blood Pressure [ 88/55 Standing] Orthostatic Blood Pressure [ 118/60 Sitting] Orthostatic Blood Pressure [ 127/62 Supine] Weight - Most Recent: 74.843 kg I&O - Last 24 Hours: Intake & Output 09/16/19 09/16/19 09/16/19 06:59 14:59 22:59 Intake Total 1000 360 Output Total 600 Balance 400 360 Lab Results Last 24 Hours: Laboratory Results - last 24 hr 09/15/19 09/15/19 09/15/19 Range/Units 21:30 21:30 21:30 WBC 10.4 (4.5-11.0) K/uL RBC 2.95 L (3.30-5.50) M/uL Hgb 9.2 L D (12.0-15.0) g/dL Hct 27.7 L (36.0-48.0) % MCV 94 (80-98) fL MCH 31 (27-31) pg MCHC 33 (32-36) % Plt Count 227 (150-400) K/uL Neut % (Auto) 83 H (36-66) % Lymph % (Auto) 10 L (24-44) % [place] % (Auto) 6 (2-6) % Eos % (Auto) 1 L (2-4) % Baso % (Auto) 0 (0-1) % PT (9.5-12.0) sec INR (0.80-1.20) Sodium 137 L (140-148) mmol/L Potassium 3.8 (3.6-5.2) mmol/L Chloride 103 (100-108) mmol/L Carbon Dioxide 25 (21-32) mmol/L Anion Gap 12.8 (5.0-14.0) mmol/L BUN 22 H (7-18) mg/dL Creatinine 1.0 (0.6-1.0) mg/dL Est Cr Clr Drug Dosing 42.56 mL/min Estimated GFR (MDRD) 54 L (>60) Glucose 110 H (74-106) mg/dL Calcium 8.8 (8.5-10.1) mg/dL Iron 20 L (50-170) ug/dL TIBC 228 L (250-450) ug/dl % Saturation 9 L (20-55) % Total Bilirubin 0.9 D (0.2-1.0) mg/dL AST 15 (15-37) U/L ALT 16 (12-78) U/L Alkaline Phosphatase 60 (46-116) U/L Total Protein 6.3 L (6.4-8.2) g/dL Albumin 3.0 L (3.4-5.0) g/dL Globulin 3.3 (2.3-3.5) g/dL Albumin/Globulin Ratio 0.9 L (1.2-2.2) TSH, Ultra Sensitive (0.358-3.740) uIU/mL Urine Color (YELLOW) Urine Appearance (CLEAR) Urine pH (5.0-8.0) Ur Specific [place] (1.008-1.030) Urine Protein (NEGATIVE) mg/dL Urine Glucose (UA) (NEGATIVE) mg/dL Urine Ketones (NEGATIVE) mg/dL Urine Occult Blood (NEGATIVE) Urine Nitrite (NEGATIVE) Urine Bilirubin (NEGATIVE) Urine Urobilinogen (0.2-1.0) EU/dL Ur Leukocyte Esterase (NEGATIVE) Urine RBC (0-5) Urine WBC (0-5) Ur Epithelial Cells Amorphous Sediment Urine Bacteria Urine Mucus Urine Other 09/15/19 09/15/19 09/15/19 Range/Units 22:30 23:02 23:56 WBC (4.5-11.0) K/uL RBC (3.30-5.50) M/uL Hgb (12.0-15.0) g/dL Hct (36.0-48.0) % MCV (80-98) fL MCH (27-31) pg MCHC (32-36) % Plt Count (150-400) K/uL Neut % (Auto) (36-66) % Lymph % (Auto) (24-44) % [place] % (Auto) (2-6) % Eos % (Auto) (2-4) % Baso % (Auto) (0-1) % PT 40.0 H (9.5-12.0) sec INR 4.01 H* (0.80-1.20) Sodium (140-148) mmol/L Potassium (3.6-5.2) mmol/L Chloride (100-108) mmol/L Carbon Dioxide (21-32) mmol/L Anion Gap (5.0-14.0) mmol/L BUN (7-18) mg/dL Creatinine (0.6-1.0) mg/dL Est Cr Clr Drug Dosing mL/min Estimated GFR (MDRD) (>60) Glucose (74-106) mg/dL Calcium (8.5-10.1) mg/dL Iron (50-170) ug/dL TIBC (250-450) ug/dl % Saturation (20-55) % Total Bilirubin (0.2-1.0) mg/dL AST (15-37) U/L ALT (12-78) U/L Alkaline Phosphatase (46-116) U/L Total Protein (6.4-8.2) g/dL Albumin (3.4-5.0) g/dL Globulin (2.3-3.5) g/dL Albumin/Globulin Ratio (1.2-2.2) TSH, Ultra Sensitive 0.520 (0.358-3.740) uIU/mL Urine Color Yellow (YELLOW) Urine Appearance Slightly cloudy A (CLEAR) Urine pH 6.0 (5.0-8.0) Ur Specific [place] 1.020 (1.008-1.030) Urine Protein Negative (NEGATIVE) mg/dL Urine Glucose (UA) Negative (NEGATIVE) mg/dL Urine Ketones Negative (NEGATIVE) mg/dL Urine Occult Blood Negative (NEGATIVE) Urine Nitrite Negative (NEGATIVE) Urine Bilirubin Negative (NEGATIVE) Urine Urobilinogen 1.0 (0.2-1.0) EU/dL Ur Leukocyte Esterase Small H (NEGATIVE) Urine RBC 0-5 (0-5) Urine WBC 0-5 (0-5) Ur Epithelial Cells Few Amorphous Sediment Not seen Urine Bacteria Few Urine Mucus Not seen Urine Other 09/16/19 09/16/19 Range/Units 07:24 07:24 WBC (4.5-11.0) K/uL RBC (3.30-5.50) M/uL Hgb 7.8 L (12.0-15.0) g/dL Hct (36.0-48.0) % MCV (80-98) fL MCH (27-31) pg MCHC (32-36) % Plt Count (150-400) K/uL Neut % (Auto) (36-66) % Lymph % (Auto) (24-44) % [place] % (Auto) (2-6) % Eos % (Auto) (2-4) % Baso % (Auto) (0-1) % PT 37.6 H (9.5-12.0) sec INR 3.75 H (0.80-1.20) Sodium (140-148) mmol/L Potassium (3.6-5.2) mmol/L Chloride (100-108) mmol/L Carbon Dioxide (21-32) mmol/L Anion Gap (5.0-14.0) mmol/L BUN (7-18) mg/dL Creatinine (0.6-1.0) mg/dL Est Cr Clr Drug Dosing mL/min Estimated GFR (MDRD) (>60) Glucose (74-106) mg/dL Calcium (8.5-10.1) mg/dL Iron (50-170) ug/dL TIBC (250-450) ug/dl % Saturation (20-55) % Total Bilirubin (0.2-1.0) mg/dL AST (15-37) U/L ALT (12-78) U/L Alkaline Phosphatase (46-116) U/L Total Protein (6.4-8.2) g/dL Albumin (3.4-5.0) g/dL Globulin (2.3-3.5) g/dL Albumin/Globulin Ratio (1.2-2.2) TSH, Ultra Sensitive (0.358-3.740) uIU/mL Urine Color (YELLOW) Urine Appearance (CLEAR) Urine pH (5.0-8.0) Ur Specific [place] (1.008-1.030) Urine Protein (NEGATIVE) mg/dL Urine Glucose (UA) (NEGATIVE) mg/dL Urine Ketones (NEGATIVE) mg/dL Urine Occult Blood (NEGATIVE) Urine Nitrite (NEGATIVE) Urine Bilirubin (NEGATIVE) Urine Urobilinogen (0.2-1.0) EU/dL Ur Leukocyte Esterase (NEGATIVE) Urine RBC (0-5) Urine WBC (0-5) Ur Epithelial Cells Amorphous Sediment Urine Bacteria Urine Mucus Urine Other Med Orders - Current: Current Medications Acetaminophen (Tylenol) 650 mg PO Q4H PRN PRN Reason: Pain (Mild 1-3)/fever Allopurinol (Zyloprim) 100 mg PO DAILY [facility] Last Admin: 09/16/19 08:03 Dose: 100 mg Aspirin (Halfprin) 81 mg PO DAILY [facility] Last Admin: 09/16/19 08:03 Dose: 81 mg Duloxetine HCl (Cymbalta) 60 mg PO DAILY [facility] Last Admin: 09/16/19 08:04 Dose: 60 mg Gabapentin (Neurontin) 100 mg PO BID [facility] Last Admin: 09/16/19 08:03 Dose: 100 mg Lorazepam (Ativan) 0.5 mg IVPUSH Q4H PRN PRN Reason: Nausea/Vomiting Magnesium Hydroxide (Milk Of Magnesia) 30 ml PO Q12H PRN PRN Reason: Constipation Melatonin (Melatonin) 9 mg PO BEDTIME PRN PRN Reason: sleep Ondansetron HCl (Zofran Odt) 4 mg PO Q6H PRN PRN Reason: Nausea able to take PO Ondansetron HCl (Zofran) 4 mg IV Q6H PRN PRN Reason: Nausea/Vomiting Oxybutynin Chloride (Oxybutynin) 2.5 mg PO BID [facility] Last Admin: 09/16/19 08:03 Dose: 2.5 mg Pantoprazole Sodium (Protonix) 40 mg PO ACBREAKFAST [facility] Last Admin: 09/16/19 08:04 Dose: 40 mg Senna/Docusate Sodium (Senna Plus) 1 tab PO BID PRN PRN Reason: Constipation Timolol Maleate (Timoptic 0.5% Ophth Soln) 0 ml EYELF DAILY [facility] Last Admin: 09/16/19 11:33 Dose: Not Given Tramadol HCl (Ultram) 50 mg PO Q6H PRN PRN Reason: Pain (moderate 4-6) Discontinued Medications Acetaminophen (Tylenol) 650 mg PO NOW ONE Stop: 09/15/19 21:50 Last Admin: 09/15/19 22:03 Dose: 650 mg Sodium Chloride (Normal Saline) 1,000 mls @ 300 mls/hr IV ASDIRECTED [facility] Stop: 09/16/19 03:19 Last Admin: 09/16/19 01:31 Dose: 300 mls/hr Timolol Maleate (Timoptic 0.5% Ophth Soln) 0 ml EYELF DAILY [facility] - Exam Quality Assessment: No: Supplemental Oxygen General: Alert, Oriented, Cooperative, No Acute Distress Lungs: Normal Respiratory Effort Cardiovascular: Regular Rate, Regular Rhythm GI/Abdominal Exam: Soft, No Distention Extremities: No Pedal Edema, Other (Left arm is in a splint) Skin: Warm, Dry, Ecchymosis (Right elbow, right third finger, left hand, both hips) Psy/Mental Status: Alert, Normal Affect Sepsis Event Note - Evaluation Sepsis Screening Result: No Definite Risk - Focused Exam Vital Signs: Vital Signs Temp Pulse Resp BP Pulse Ox 09/16/19 14:50 37.2 C 93 18 111/45 L 94 L 09/16/19 10:25 36.9 C 85 18 114/57 L 98 09/16/19 07:52 112 H 18 118/56 L 98 09/16/19 04:10 36.8 C 105 H 16 142/51 H 97 Date Exam was Performed: 09/16/19 Time Exam was Performed: 15:14 - Problem List & Annotations (1) Syncope and collapse SNOMED Code(s): 188681183 Code(s): R55 - SYNCOPE AND COLLAPSE Status: Acute Current Visit: Yes (2) Orthostatic hypotension SNOMED Code(s): 73881913 Code(s): I95.1 - ORTHOSTATIC HYPOTENSION Status: Acute Current Visit: Yes (3) Hematoma of left hip SNOMED Code(s): 77717842528468139 Code(s): S70.02XA - CONTUSION OF LEFT HIP, INITIAL ENCOUNTER Status: Acute Current Visit: Yes Qualifiers: Encounter type: initial encounter Qualified Code(s): S70.02XA - Contusion of left hip, initial encounter (4) Anemia due to blood loss, acute SNOMED Code(s): 436410202 Code(s): D62 - ACUTE POSTHEMORRHAGIC ANEMIA Status: Acute Current Visit: Yes (5) Fracture of distal end of left radius SNOMED Code(s): 123681532 Code(s): S52.502A - UNSP FRACTURE OF THE LOWER END OF LEFT RADIUS, INIT Status: Acute Current Visit: Yes Qualifiers: Encounter type: initial encounter Fracture type: closed Fracture morphology: unspecified fracture morphology Qualified Code(s): S52.502A - Unspecified fracture of the lower end of left radius, initial encounter for closed fracture (6) Elevated INR SNOMED Code(s): 320113601 Code(s): R79.1 - ABNORMAL COAGULATION PROFILE Status: Acute Current Visit : Yes - Problem List Review Problem List Initiated/Reviewed/Updated: Yes - My Orders Last 24 Hours: My Active Orders 09/16/19 01:30 Resuscitation Status Routine 09/16/19 01:53 Patient Status [ADT] Routine Antiembolic Devices [RC] .Routine Intake and Output [RC] QSHIFT Notify Provider Consults [RC] ASDIRECTED Notify Provider Vital Signs [RC] ASDIRECTED Oxygen Therapy [RC] PRN Up With Assistance [RC] ASDIRECTED Vital Signs [RC] Q4H Consult to Physician [CONS] Routine Acetaminophen [Tylenol] 650 mg PO Q4H PRN Docusate Sodium/Sennosides [Senna Plus] 1 tab PO BID PRN LORazepam [Ativan] 0.5 mg IVPUSH Q4H PRN Magnesium Hydroxide [Milk of Magnesia] 30 ml PO Q12H PRN Melatonin 9 mg PO BEDTIME PRN Ondansetron [Zofran ODT] 4 mg PO Q6H PRN Ondansetron [Zofran] 4 mg IV Q6H PRN traMADol [Ultram] 50 mg PO Q6H PRN Antiembolic Hose [OM.PC] Routine VTE Pharmacological Contraindications [AST] Routine 09/16/19 07:30 Pantoprazole [ProTONIX] 40 mg PO ACBREAKFAST 09/16/19 09:00 Aspirin [Halfprin] 81 mg PO DAILY DULoxetine [Cymbalta] 60 mg PO DAILY Gabapentin [Neurontin] 100 mg PO BID Oxybutynin 2.5 mg PO BID allopurinoL [Zyloprim] 100 mg PO DAILY timoloL maleate [Timoptic 0.5% Ophth Soln] 0 ml EYELF DAILY 09/16/19 Breakfast Regular Diet [DIET] - Plan Plan:: ASSESSMENT AND PLAN - Syncope and collapse-secondary to orthostatic hypotension. I suspect this is related to her use of diuretics and complicated by blood loss. -Discontinue diuretics -Hemoglobin in the morning -Repeat orthostatic vital signs in the morning Bilateral hip hematomas-secondary to fall and complicated by anemia due to blood loss. Pain tolerable. -Pain control -Hemoglobin again in the morning Left distal radius fracture-secondary to fall. X-ray yesterday was read as normal but CT scan did definitively show a fracture. Orthopedic consultation for splinting appreciated. -Continue splint for 6 weeks -Outpatient follow-up History of bilateral pulmonary emboli-chronically anticoagulated. INR still elevated. -Hold warfarin today and recheck INR Essential hypertension-blood pressure stable overnight. Maintenance issues - - DVT prophylaxis -warfarin - GI prophylaxis -PPI - Nutrition -regular Admission justification -patient will be referred observation status for symptomatic management, repeat orthostatic vital signs, orthopedic consultation Disposition -I would anticipate discharge home with home care after the hospital stay Garett Gonsalez M.D.
--- NOTE | 2019-09-16 15:22 | PCM.CONS ---
H&P History of Present Illness - General Date of Service: 09/16/19 Admit Problem/Dx: Admission Diagnosis/Problem Admission Diagnosis/Problem Syncope Source of Information: Patient, Old Records, Provider History Limitations: Reports: No Limitations - History of Present Illness Initial Comments - Free Text/Narative: Asked to see this pleasant 79 year old for left wrist injury after falling. She apparently has had three falls in the 24 hours leading up to admission. She injured the wrist on the first fall but x-rays did not show a definitive fracture. A subsequent CT scan revealed a nondisplaced fracture of the distal radius. She also sustained a contusion to the hip but no fracture is apparent. Onset of Symptoms: Reports: Sudden Location: Reports: Upper Extremity, Left, Other (left wrist) Quality: Reports: Ache, Throbbing Severity: Moderate Improves with: Reports: Immobilization Worsens with: Reports: Movement Associated Symptoms: Reports: No Other Symptoms left wrist Pain Score (Numeric/FACES): 2 - Related Data Allergies/Adverse Reactions: Allergies Allergy/AdvReac Type Severity Reaction Status Date / Time iodine Allergy Other Verified 09/15/19 20:45 clindamycin AdvReac Mouth Sores Verified 09/15/19 20:45 morphine AdvReac Nausea and Verified 09/15/19 20:45 Vomiting naproxen sodium [From Aleve] AdvReac Dizziness Verified 09/15/19 20:45 procaine HCl [From Novocain] AdvReac Lightheaded Verified 09/15/19 20:45 ness Diagnostic Xray Materials AdvReac Nausea Uncoded 09/15/19 20:45 Home Medications: Home Meds Calcium Carbonate [Tums Extra Strength] 1,500 mg PO DAILY 07/09/14 [History] Cholecalciferol (Vitamin D3) [Vitamin D3] 400 units PO DAILY 07/09/14 [History] Flaxseed Oil [Flax Oil] 2,000 mg PO DAILY 07/09/14 [History] Multivitamin with Minerals [Multiple Vitamin] 1 tab PO DAILY 07/09/14 [History] Oxybutynin Chloride [Ditropan Xl] 5 mg PO DAILY 07/09/14 [History] timoloL maleate [Timoptic 0.5% Ophth Soln] 1 drop EYELF DAILY 07/08/15 [History] Aspirin [Adult Low Dose Aspirin EC] 81 mg PO DAILY 06/18/19 [History] Clobetasol [Clobetasol 0.05%] 1 dose TOP ASDIRECTED 06/18/19 [History] DULoxetine [Cymbalta] 60 mg PO DAILY 06/18/19 [History] Furosemide [Lasix] 20 mg PO ASDIRECTED 06/18/19 [History] Gabapentin [Neurontin] 100 mg PO BID 06/18/19 [History] Pantoprazole [ProTONIX] 40 mg PO DAILY 06/18/19 [History] Triamcinolone Acetonide [Triamcinolone Acetonide 0.025%] 1 dose TOP ASDIRECTED 06/18/19 [History] allopurinoL [Zyloprim] 100 mg PO DAILY 06/18/19 [History] lisinopriL [Zestril] 2.5 mg PO DAILY 06/18/19 [History] Warfarin [Coumadin] 5 mg PO DAILY 06/22/19 [History] Spironolactone [Aldactone] 12.5 mg PO DAILY 09/16/19 [History] Past Medical History HEENT History: Reports: Cataract, Glaucoma, Impaired Vision Cardiovascular History: Reports: Blood Clots/VTE/DVT, CAD, High Cholesterol, Hypertension Respiratory History: Reports: PE Gastrointestinal History: Reports: Colon Polyp, Hemorrhoids Genitourinary History: Reports: Renal Calculus, Urinary Incontinence 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: Musculoskeletal History: Reports: Arthritis, Back Pain, Chronic, Fracture, Fibromyalgia, Osteoarthritis Other Musculoskeletal History: Elbow fracture Psychiatric History: Reports: Anxiety, Depression Endocrine/Metabolic History: Reports: Obesity/BMI 30+, Osteoporosis Hematologic History: Reports: Anticoagulation Therapy, Blood Transfusion(s) Dermatologic History: Reports: Seborrheic Dermatitis Other Dermatologic History: Pt reports sensitive skin - Infectious Disease History Infectious Disease History: Reports: Chicken Pox, Shingles - Past Surgical History Head Surgeries/Procedures: Reports: None HEENT Surgical History: Reports: Cataract Surgery, Eye Surgery Cardiovascular Surgical History: Reports: None Respiratory Surgical History: Reports: None GI Surgical History: Reports: Colonoscopy Female Surgical History: Reports: Breast Biopsy, Hysterectomy Other Endocrine Surgeries/Procedures: has thyroid nodule that they are watching Musculoskeletal Surgical History: Reports: Knee Replacement Dermatological Surgical History: Reports: None Social & Family History - Family History Family Medical History: Noncontributory HEENT: Reports: None Cardiac: Reports: Hypertension Respiratory: Reports: None : Reports: Renal Disease/Insufficiency Musculoskeletal: Reports: Back pain, Chronic, Osteoporosis Neurological: Reports: Alzheimers Disease, Dementia Hematologic: Reports: Bleeding Disorder Oncologic: Reports: Breast, Prostate - Tobacco Use Smoking Status *Q: Former Smoker Used Tobacco, but Quit: Yes Month/Year Tobacco Last Used: 1999 Second Hand Smoke Exposure: No - Caffeine Use Caffeine Use: Reports: Coffee - Recreational Drug Use Recreational Drug Use: No H&P Review of Systems - Review of Systems: Review Of Systems: See Below Musculoskeletal: Reports: Hand Pain, Joint Swelling Exam - Exam Exam: See Below - Vital Signs Vital Signs: Last Vital Signs Temp 37.2 C 09/16/19 14:50 Pulse 93 09/16/19 14:50 Resp 18 09/16/19 14:50 BP 111/45 L 09/16/19 14:50 Pulse Ox 94 L 09/16/19 14:50 Orthostatic Blood Pressure [ 88/55 Standing] Orthostatic Blood Pressure [ 118/60 Sitting] Orthostatic Blood Pressure [ 127/62 Supine] Weight: 74.843 kg - Exam General: Alert, Oriented Extremities: Joint Swelling, Limited Range of Motion, Other (swelling and ecchymosis over dorsum of left wrist and hand, 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) Peripheral Pulses: 1+: Radial (L), Radial (R) Skin: Warm, Dry, Intact Neuro Extensive - Mental Status: Alert, Oriented x3, Normal Mood/Affect, Normal Cognition, Memory Intact Psychiatric: Alert, Normal Affect, Normal Mood Physical Exam Comments:: left wrist with no deformity, normal sensation and cap refill - Patient Data Lab Results Last 24 hrs: Laboratory Results - last 24 hr 09/15/19 09/15/19 09/15/19 Range/Units 21:30 21:30 21:30 WBC 10.4 (4.5-11.0) K/uL RBC 2.95 L (3.30-5.50) M/uL Hgb 9.2 L D (12.0-15.0) g/dL Hct 27.7 L (36.0-48.0) % MCV 94 (80-98) fL MCH 31 (27-31) pg MCHC 33 (32-36) % Plt Count 227 (150-400) K/uL Neut % (Auto) 83 H (36-66) % Lymph % (Auto) 10 L (24-44) % [place] % (Auto) 6 (2-6) % Eos % (Auto) 1 L (2-4) % Baso % (Auto) 0 (0-1) % PT (9.5-12.0) sec INR (0.80-1.20) Sodium 137 L (140-148) mmol/L Potassium 3.8 (3.6-5.2) mmol/L Chloride 103 (100-108) mmol/L Carbon Dioxide 25 (21-32) mmol/L Anion Gap 12.8 (5.0-14.0) mmol/L BUN 22 H (7-18) mg/dL Creatinine 1.0 (0.6-1.0) mg/dL Est Cr Clr Drug Dosing 42.56 mL/min Estimated GFR (MDRD) 54 L (>60) Glucose 110 H (74-106) mg/dL Calcium 8.8 (8.5-10.1) mg/dL Iron 20 L (50-170) ug/dL TIBC 228 L (250-450) ug/dl % Saturation 9 L (20-55) % Total Bilirubin 0.9 D (0.2-1.0) mg/dL AST 15 (15-37) U/L ALT 16 (12-78) U/L Alkaline Phosphatase 60 (46-116) U/L Total Protein 6.3 L (6.4-8.2) g/dL Albumin 3.0 L (3.4-5.0) g/dL Globulin 3.3 (2.3-3.5) g/dL Albumin/Globulin Ratio 0.9 L (1.2-2.2) TSH, Ultra Sensitive (0.358-3.740) uIU/mL Urine Color (YELLOW) Urine Appearance (CLEAR) Urine pH (5.0-8.0) Ur Specific [place] (1.008-1.030) Urine Protein (NEGATIVE) mg/dL Urine Glucose (UA) (NEGATIVE) mg/dL Urine Ketones (NEGATIVE) mg/dL Urine Occult Blood (NEGATIVE) Urine Nitrite (NEGATIVE) Urine Bilirubin (NEGATIVE) Urine Urobilinogen (0.2-1.0) EU/dL Ur Leukocyte Esterase (NEGATIVE) Urine RBC (0-5) Urine WBC (0-5) Ur Epithelial Cells Amorphous Sediment Urine Bacteria Urine Mucus Urine Other 09/15/19 09/15/19 09/15/19 Range/Units 22:30 23:02 23:56 WBC (4.5-11.0) K/uL RBC (3.30-5.50) M/uL Hgb (12.0-15.0) g/dL Hct (36.0-48.0) % MCV (80-98) fL MCH (27-31) pg MCHC (32-36) % Plt Count (150-400) K/uL Neut % (Auto) (36-66) % Lymph % (Auto) (24-44) % [place] % (Auto) (2-6) % Eos % (Auto) (2-4) % Baso % (Auto) (0-1) % PT 40.0 H (9.5-12.0) sec INR 4.01 H* (0.80-1.20) Sodium (140-148) mmol/L Potassium (3.6-5.2) mmol/L Chloride (100-108) mmol/L Carbon Dioxide (21-32) mmol/L Anion Gap (5.0-14.0) mmol/L BUN (7-18) mg/dL Creatinine (0.6-1.0) mg/dL Est Cr Clr Drug Dosing mL/min Estimated GFR (MDRD) (>60) Glucose (74-106) mg/dL Calcium (8.5-10.1) mg/dL Iron (50-170) ug/dL TIBC (250-450) ug/dl % Saturation (20-55) % Total Bilirubin (0.2-1.0) mg/dL AST (15-37) U/L ALT (12-78) U/L Alkaline Phosphatase (46-116) U/L Total Protein (6.4-8.2) g/dL Albumin (3.4-5.0) g/dL Globulin (2.3-3.5) g/dL Albumin/Globulin Ratio (1.2-2.2) TSH, Ultra Sensitive 0.520 (0.358-3.740) uIU/mL Urine Color Yellow (YELLOW) Urine Appearance Slightly cloudy A (CLEAR) Urine pH 6.0 (5.0-8.0) Ur Specific [place] 1.020 (1.008-1.030) Urine Protein Negative (NEGATIVE) mg/dL Urine Glucose (UA) Negative (NEGATIVE) mg/dL Urine Ketones Negative (NEGATIVE) mg/dL Urine Occult Blood Negative (NEGATIVE) Urine Nitrite Negative (NEGATIVE) Urine Bilirubin Negative (NEGATIVE) Urine Urobilinogen 1.0 (0.2-1.0) EU/dL Ur Leukocyte Esterase Small H (NEGATIVE) Urine RBC 0-5 (0-5) Urine WBC 0-5 (0-5) Ur Epithelial Cells Few Amorphous Sediment Not seen Urine Bacteria Few Urine Mucus Not seen Urine Other 09/16/19 09/16/19 Range/Units 07:24 07:24 WBC (4.5-11.0) K/uL RBC (3.30-5.50) M/uL Hgb 7.8 L (12.0-15.0) g/dL Hct (36.0-48.0) % MCV (80-98) fL MCH (27-31) pg MCHC (32-36) % Plt Count (150-400) K/uL Neut % (Auto) (36-66) % Lymph % (Auto) (24-44) % [place] % (Auto) (2-6) % Eos % (Auto) (2-4) % Baso % (Auto) (0-1) % PT 37.6 H (9.5-12.0) sec INR 3.75 H (0.80-1.20) Sodium (140-148) mmol/L Potassium (3.6-5.2) mmol/L Chloride (100-108) mmol/L Carbon Dioxide (21-32) mmol/L Anion Gap (5.0-14.0) mmol/L BUN (7-18) mg/dL Creatinine (0.6-1.0) mg/dL Est Cr Clr Drug Dosing mL/min Estimated GFR (MDRD) (>60) Glucose (74-106) mg/dL Calcium (8.5-10.1) mg/dL Iron (50-170) ug/dL TIBC (250-450) ug/dl % Saturation (20-55) % Total Bilirubin (0.2-1.0) mg/dL AST (15-37) U/L ALT (12-78) U/L Alkaline Phosphatase (46-116) U/L Total Protein (6.4-8.2) g/dL Albumin (3.4-5.0) g/dL Globulin (2.3-3.5) g/dL Albumin/Globulin Ratio (1.2-2.2) TSH, Ultra Sensitive (0.358-3.740) uIU/mL Urine Color (YELLOW) Urine Appearance (CLEAR) Urine pH (5.0-8.0) Ur Specific [place] (1.008-1.030) Urine Protein (NEGATIVE) mg/dL Urine Glucose (UA) (NEGATIVE) mg/dL Urine Ketones (NEGATIVE) mg/dL Urine Occult Blood (NEGATIVE) Urine Nitrite (NEGATIVE) Urine Bilirubin (NEGATIVE) Urine Urobilinogen (0.2-1.0) EU/dL Ur Leukocyte Esterase (NEGATIVE) Urine RBC (0-5) Urine WBC (0-5) Ur Epithelial Cells Amorphous Sediment Urine Bacteria Urine Mucus Urine Other Result Diagrams: 09/16/19 07:24 09/15/19 21:30 Sepsis Event Note - Evaluation Sepsis Screening Result: No Definite Risk - Focused Exam Vital Signs: Vital Signs Temp Pulse Resp BP Pulse Ox 09/16/19 14:50 37.2 C 93 18 111/45 L 94 L 09/16/19 10:25 36.9 C 85 18 114/57 L 98 09/16/19 07:52 112 H 18 118/56 L 98 09/16/19 04:10 36.8 C 105 H 16 142/51 H 97 Date Exam was Performed: 09/16/19 Time Exam was Performed: 15:32 *Q Meaningful Use (ADM) - VTE *Q VTE Pharmacological Contraindications *Q: High INR Value Consult PN Assessment/Plan Procedures: Procedures ASSAY OF NATRIURETIC PEPTIDE (07/01/15) ASSAY OF TROPONIN QUANT (07/01/15) BREAST TOMOSYNTHESIS BI (10/22/18) CHEST X-RAY 2VW FRONTAL&LATL (07/01/15) COLONOSCOPY AND BIOPSY (06/22/19) COMP SCREEN MAMMOGRAM ADD-ON (12/05/15) COMPLETE CBC AUTOMATED (07/07/15) COMPLETE CBC W/AUTO DIFF WBC (07/07/15) COMPREHEN METABOLIC PANEL (07/01/15) COMPUTER DX MAMMOGRAM ADD-ON (12/08/13) CT ABDOMEN W/O & W/DYE (02/18/15) CT ANGIOGRAPHY CHEST (07/07/15) ELECTROCARDIOGRAM TRACING (07/01/15) EMERGENCY DEPT VISIT (01/05/16) EMERGENCY DEPT VISIT (07/01/15) MANUAL THERAPY 1/> REGIONS (03/13/16) METABOLIC PANEL TOTAL CA (07/07/15) OFFICE/OUTPATIENT VISIT NEW (07/11/15) PROTHROMBIN TIME (07/11/15) PT EVALUATION (01/20/16) ROUTINE VENIPUNCTURE (07/11/15) SCR MAMMO BI INCL CAD (10/22/18) THER/PROPH/DIAG INJ SC/IM (06/21/19) THERAPEUTIC EXERCISES (03/13/16) TTE W/DOPPLER COMPLETE (12/15/18) ULTRASOUND BREAST LIMITED (06/11/14) ULTRASOUND THERAPY (01/20/16) US EXAM BREAST(S) (12/08/13) US EXAM OF HEAD AND NECK (07/26/15) X-RAY EXAM OF KNEE 3 (11/27/15) (1) Fracture of distal end of left radius SNOMED Code(s): 933836186 Code(s): S52.502A - UNSP FRACTURE OF THE LOWER END OF LEFT RADIUS, INIT Current Visit: Yes Qualifiers: Encounter type: initial encounter Fracture type: closed Fracture morphology: other intra-articular Qualified Code(s): S52.572A - Other intraarticular fracture of lower end of left radius, initial encounter for closed fracture (2) Fracture of ulnar styloid SNOMED Code(s): 258978587 Code(s): S52.613A - DISP FX OF UNSP ULNA STYLOID PROCESS, INIT FOR CLOS FX Current Visit: Yes Qualifiers: Encounter type: initial encounter Fracture type: closed Fracture alignment: nondisplaced Laterality: left Qualified Code(s): S52.615A - Nondisplaced fracture of left ulna styloid process, initial encounter for closed fracture Problem List Initiated/Reviewed/Updated: Yes My Orders Last 24 Hours: My Active Orders 09/16/19 08:00 Neurovascular Check [RC] Q4HR Plan: X-rays ans CT reviewed. There is a nondisplaced intraarticular fracture of the left distal radius and a minimal fracture of the ulnar styloid. IMP: Nondisplaced fracture left wrist, no surgery indicated. Plan: A molded Exos short arm brace is applied. She should wear this except for showering/bathing until follow up. It may be removed intermittently as needed. The brace can be worn in the shower if wished. [facility] as scheduled. She may call or return before that if she has any concerns or questions.
[2019-09-16] MEDS: Acetaminophen 325 MG Tab PO PRN (16:57)
[2019-09-17] MEDS: Acetaminophen 325 MG Tab PO PRN (08:32)
[2019-09-17] MEDS: Oxybutynin 5 MG Tab PO SCH (08:33)
[2019-09-17] MEDS: Aspirin 81 MG Tab.EC PO SCH (08:33)
[2019-09-17] MEDS: DULoxetine 30 MG Cap PO SCH (08:33)
[2019-09-17] MEDS: GABAPENTIN 100 MG PO SCH ×2 (08:33→08:35)
[2019-09-17] MEDS: Pantoprazole 40 MG Tab.CR PO SCH (08:33)
[2019-09-17] MEDS: Allopurinol 100 MG Tab PO SCH (08:34)
[2019-09-17] MEDS: Timolol Maleate 0.5% Ophth Soln 5 ML Bottle EYELF SCH (08:34)
--- NOTE | 2019-09-17 15:34 | PCM.DCSUM1 ---
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 She was admitted for management of orthostatic hypotension, left radius fracture, bilateral hip hematomas and anemia due to blood loss. Diagnosis: Stroke: No - Discharge Data Discharge Date: 09/17/19 Discharge Disposition: Home, W Home Health Agency 06 Condition: Fair - Referral to Home Health Date of Face to Face Encounter: 09/17/19 Reason for Homebound Status: acute weakness, orthostatic hypotension, wrist fracture Primary Care Physician: PCP None Skilled Need: Nursing, PT, OT, home health aide - Discharge Diagnosis/Problem(s) (1) Syncope and collapse SNOMED Code(s): 142208697 ICD Code: R55 - SYNCOPE AND COLLAPSE Status: Acute Current Visit: Yes (2) Orthostatic hypotension SNOMED Code(s): 50350981 ICD Code: I95.1 - ORTHOSTATIC HYPOTENSION Status: Acute Current Visit: Yes (3) Hematoma of left hip SNOMED Code(s): 90352795534042843 ICD Code: S70.02XA - CONTUSION OF LEFT HIP, INITIAL ENCOUNTER Status: Acute Current Visit: Yes Qualifiers: Encounter type: initial encounter Qualified Code(s): S70.02XA - Contusion of left hip, initial encounter (4) Traumatic hematoma of right hip SNOMED Code(s): 88344829510896659, [id number], [id number] ICD Code: S70.01XA - CONTUSION OF RIGHT HIP, INITIAL ENCOUNTER Status: Acute Current Visit: Yes Qualifiers: Encounter type: initial encounter Qualified Code(s): S70.01XA - Contusion of right hip, initial encounter (5) Anemia due to blood loss, acute SNOMED Code(s): 527381130 ICD Code: D62 - ACUTE POSTHEMORRHAGIC ANEMIA Status: Acute Current Visit : Yes (6) Fracture of distal end of left radius SNOMED Code(s): 570013360 ICD Code: S52.502A - UNSP FRACTURE OF THE LOWER END OF LEFT RADIUS, INIT Status: Acute Current Visit: Yes Qualifiers: Encounter type: initial encounter Fracture type: closed Fracture morphology: other intra-articular Qualified Code(s): S52.572A - Other intraarticular fracture of lower end of left radius, initial encounter for closed fracture (7) Elevated INR SNOMED Code(s): 524495391 ICD Code: R79.1 - ABNORMAL COAGULATION PROFILE Status: Acute Current Visit: Yes - Patient Summary/Data Consults: Consultations 09/16/19 01:53 Consult to Physician [CONS] Routine Consulting Provider: Jean Marie Mcclure Call Completed to Consulting Physician: No Reason for Consult: left wrist fracture Person Notified: INSURANCE LOSS ASSESSOR Date Notified: 09/16/19 Special Instructions: will the ortho clinic in the morning on rounds Hospital Course: Wanda presented to the emergency room after an episode of syncope resulted in her third fall in 24 hours. work-up in the emergency room was suggestive of anemia due to blood loss from 2 hip hematomas as well as orthostatic hypotension. CT scan of the left wrist also showed a nondisplaced fracture of the distal radius. She was admitted to the hospital for observation and further management. Overnight she received some IV fluids to help with the orthostatic hypotension. She had been on spironolactone and this was discontinued. We did hold her lisinopril for a day before restarting. On the morning after admission the orthopedic team was consulted and a splint was placed on the left wrist for fracture management. Patient continued to have some dizziness with standing but was doing better this day. By the morning of discharge unfortunately her hemoglobin dropped down below 7. We did elect to transfuse 2 units of blood. The hematoma seemed to have stopped bleeding and were smaller on the day of discharge. We had been holding her Coumadin and plan to do so for another 2 days. She is feeling well and has been up and moving around. Her orthostatic symptoms have essentially resolved at this point. Blood pressures have been stable. Pain is well controlled with acetaminophen and tramadol. She was interested in home care at the time of discharge and will be set up for nursing, physical and occupational therapy as well as a home health aide. She will be having her hemoglobin and INR rechecked next week. She will not take Coumadin today or tomorrow. We discontinued the spironolactone at the time of discharge as I think this was the main culprit for her orthostatic hypotension and intravascular volume depletion. She has no edema at this time. In the future if she has difficulty with edema we could consider using KEYA stockings or other compression device rather than diuretics. - Patient Instructions Diet: Regular Diet as Tolerated Activity: As Tolerated Driving: Do Not Drive (if you are taking your pain pills ) Showering/Bathing: May Shower Notify Provider of: Fever, Increased Pain, Nausea and/or Vomiting Other/Special Instructions: 1. You were in the hospital for evaluation after an episode of syncope and collapse. I suspect the syncope was due to a combination of dehydration and low blood pressures as well as contribution from a low hemoglobin. Her blood pressure and orthostatic symptoms have improved with IV fluids and stopping the spironolactone. Because of the fall you suffered hematomas on both of your hips. The bleeding was significant enough that she required a blood transfusion. I recommend that you not take your warfarin today or tomorrow (Saturday). You may restart your warfarin on Saturday but do not take the extra half a tablet, just take 5 mg daily. You will have your INR and hemoglobin rechecked next week as discussed below. You may use acetaminophen for mild pain or the tramadol for moderate pain. 2. Continue your home medications as previously prescribed with the exception of the spironolactone which you should stop taking. 3. Follow up as scheduled with your primary care and with Dr Jean Marie Mcclure. 4. I have placed a referral to home health care to help ease your transition home. They will provide nursing, physical therapy, occupational therapy and home health aide services. You should have your hemoglobin and INR rechecked next Saturday, 09/21. - Discharge Plan *PRESCRIPTION DRUG MONITORING PROGRAM REVIEWED*: Not Applicable *COPY OF PRESCRIPTION DRUG MONITORING REPORT IN PATIENT MENG: Not Applicable Prescriptions/Med Rec: traMADol [Ultram] 50 mg PO Q6H PRN #20 tablet PRN Reason: Pain (Moderate 4-6) Home Medications: Home Meds Calcium Carbonate [Tums Extra Strength] 1,500 mg PO DAILY 07/09/14 [History] Cholecalciferol (Vitamin D3) [Vitamin D3] 400 units PO DAILY 07/09/14 [History] Flaxseed Oil [Flax Oil] 2,000 mg PO DAILY 07/09/14 [History] Multivitamin with Minerals [Multiple Vitamin] 1 tab PO DAILY 07/09/14 [History] Oxybutynin Chloride [Ditropan Xl] 5 mg PO DAILY 07/09/14 [History] timoloL maleate [Timoptic 0.5% Ophth Soln] 1 drop EYELF DAILY 07/08/15 [History] Aspirin [Adult Low Dose Aspirin EC] 81 mg PO DAILY 06/18/19 [History] Clobetasol [Clobetasol 0.05%] 1 dose TOP ASDIRECTED 06/18/19 [History] DULoxetine [Cymbalta] 60 mg PO DAILY 06/18/19 [History] Furosemide [Lasix] 20 mg PO ASDIRECTED 06/18/19 [History] Gabapentin [Neurontin] 100 mg PO BID 06/18/19 [History] Pantoprazole [ProTONIX] 40 mg PO DAILY 06/18/19 [History] Triamcinolone Acetonide [Triamcinolone Acetonide 0.025%] 1 dose TOP ASDIRECTED 06/18/19 [History] allopurinoL [Zyloprim] 100 mg PO DAILY 06/18/19 [History] lisinopriL [Zestril] 2.5 mg PO DAILY 06/18/19 [History] Warfarin [Coumadin] 5 mg PO DAILY 06/22/19 [History] traMADol [Ultram] 50 mg PO Q6H PRN #20 tablet 09/17/19 [Rx] Oxygen Therapy Mode: Room Air Patient Handouts: Contusion, [id number], Wrist Fracture Treated With Immobilization, [id number] Referrals: Jean Marie Mcclure MD [Physician] - 10/01/19 1:30 pm (Please arrive 15 minutes early to register for your appointment. Please register at the ER desk for your appointment.) Yue Fritz PA-C [Ordering Only Provider] - - Discharge Summary/Plan Comment DC Time >30 min.: Yes (35-coordinating home care) - Patient Data Vitals - Most Recent: Last Vital Signs Temp 36.2 C 09/17/19 15:15 Pulse 78 09/17/19 15:15 Resp 16 09/17/19 15:15 BP 104/49 L 09/17/19 15:15 Pulse Ox 96 09/17/19 15:15 Orthostatic Blood Pressure [ 88/55 Standing] Orthostatic Blood Pressure [ 118/60 Sitting] Orthostatic Blood Pressure [ 127/62 Supine] Weight - Most Recent: 74.843 kg I&O - Last 24 hours: Intake & Output 09/17/19 09/17/19 09/17/19 06:59 14:59 22:59 Intake Total 1035 Balance 1035 Lab Results - Last 24 hrs: Laboratory Results - last 24 hr 09/17/19 09/17/19 09/17/19 Range/Units 06:07 06:07 06:07 WBC 6.0 (4.5-11.0) K/uL RBC 2.23 L (3.30-5.50) M/uL Hgb 6.8 L* (12.0-15.0) g/dL Hct 21.5 L (36.0-48.0) % MCV 96 (80-98) fL MCH 31 (27-31) pg MCHC 32 (32-36) % Plt Count 220 (150-400) K/uL PT 25.8 H (9.5-12.0) sec INR 2.52 H (0.80-1.20) Sodium 141 (140-148) mmol/L Potassium 3.7 (3.6-5.2) mmol/L Chloride 107 (100-108) mmol/L Carbon Dioxide 28 (21-32) mmol/L Anion Gap 6.1 (5.0-14.0) mmol/L BUN 19 H (7-18) mg/dL Creatinine 1.0 (0.6-1.0) mg/dL Est Cr Clr Drug Dosing 41.72 mL/min Estimated GFR (MDRD) 54 L (>60) Glucose 132 H (74-106) mg/dL Calcium 8.6 (8.5-10.1) mg/dL Blood Type Gel Antibody Screen Crossmatch 09/17/19 Range/Units 06:48 WBC (4.5-11.0) K/uL RBC (3.30-5.50) M/uL Hgb (12.0-15.0) g/dL Hct (36.0-48.0) % MCV (80-98) fL MCH (27-31) pg MCHC (32-36) % Plt Count (150-400) K/uL PT (9.5-12.0) sec INR (0.80-1.20) Sodium (140-148) mmol/L Potassium (3.6-5.2) mmol/L Chloride (100-108) mmol/L Carbon Dioxide (21-32) mmol/L Anion Gap (5.0-14.0) mmol/L BUN (7-18) mg/dL Creatinine (0.6-1.0) mg/dL Est Cr Clr Drug Dosing mL/min Estimated GFR (MDRD) (>60) Glucose (74-106) mg/dL Calcium (8.5-10.1) mg/dL Blood Type O POSITIVE Gel Antibody Screen Negative Crossmatch See Detail Med Orders - Current: Current Medications Acetaminophen (Tylenol) 650 mg PO Q4H PRN PRN Reason: Pain (Mild 1-3)/fever Last Admin: 09/17/19 08:32 Dose: 650 mg Allopurinol (Zyloprim) 100 mg PO DAILY [facility] Last Admin: 09/17/19 08:34 Dose: 100 mg Aspirin (Halfprin) 81 mg PO DAILY [facility] Last Admin: 09/17/19 08:33 Dose: 81 mg Duloxetine HCl (Cymbalta) 60 mg PO DAILY [facility] Last Admin: 09/17/19 08:33 Dose: 60 mg Gabapentin (Neurontin) 100 mg PO BID [facility] Last Admin: 09/17/19 08:35 Dose: 100 mg Lorazepam (Ativan) 0.5 mg IVPUSH Q4H PRN PRN Reason: Nausea/Vomiting Magnesium Hydroxide (Milk Of Magnesia) 30 ml PO Q12H PRN PRN Reason: Constipation Melatonin (Melatonin) 9 mg PO BEDTIME PRN PRN Reason: sleep Ondansetron HCl (Zofran Odt) 4 mg PO Q6H PRN PRN Reason: Nausea able to take PO Ondansetron HCl (Zofran) 4 mg IV Q6H PRN PRN Reason: Nausea/Vomiting Oxybutynin Chloride (Oxybutynin) 2.5 mg PO BID [facility] Last Admin: 09/17/19 08:33 Dose: 2.5 mg Pantoprazole Sodium (Protonix) 40 mg PO ACBREAKFAST [facility] Last Admin: 09/17/19 08:33 Dose: 40 mg Senna/Docusate Sodium (Senna Plus) 1 tab PO BID PRN PRN Reason: Constipation Timolol Maleate (Timoptic 0.5% Ophth Soln) 0 ml EYELF DAILY [facility] Last Admin: 09/17/19 08:34 Dose: 1 drop Tramadol HCl (Ultram) 50 mg PO Q6H PRN PRN Reason: Pain (moderate 4-6) Discontinued Medications Acetaminophen (Tylenol) 650 mg PO NOW ONE Stop: 09/15/19 21:50 Last Admin: 09/15/19 22:03 Dose: 650 mg Sodium Chloride (Normal Saline) 1,000 mls @ 300 mls/hr IV ASDIRECTED [facility] Stop: 09/16/19 03:19 Last Admin: 09/16/19 01:31 Dose: 300 mls/hr Timolol Maleate (Timoptic 0.5% Ophth Soln) 0 ml EYELF DAILY [facility] - Exam Quality Assessment: Denies: Supplemental Oxygen General: Reports: Alert, Oriented, Cooperative, No Acute Distress Lungs: Reports: Normal Respiratory Effort Cardiovascular: Reports: Regular Rate, Regular Rhythm GI/Abdominal Exam: Soft, No Distention Extremities: No Pedal Edema, Other (left wrist in splint) Skin: Reports: Warm, Ecchymosis (both hips) Psy/Mental Status: Reports: Alert, Normal Affect *Q Meaningful Use (DIS) - VTE *Q VTE Pharmacological Contraindications *Q: High INR Value
[2019-09-17 17:06] VITALS: BP 110/48; PULSE 74
== END 2019-09-17 17:20 | disposition home health service (06) ==
LOC: JP.ED 20:28 → JP.MS 09-16 01:29
PROVIDERS: ADMIT Internal Medicine; ATTEND Internal Medicine
DX: I95.1 Orthostatic hypotension (principal); S52.572A Other intraarticular fracture of lower end of left radius, initial encounter for closed fracture; S52.612A Displaced fracture of left ulna styloid process, initial encounter for closed fracture; S70.01XA Contusion of right hip, initial encounter; S70.02XA Contusion of left hip, initial encounter; D62 Acute posthemorrhagic anemia; R79.1 Abnormal coagulation profile; E78.00 Pure hypercholesterolemia, unspecified; I10 Essential (primary) hypertension; F41.9 Anxiety disorder, unspecified; G30.9 Alzheimer's disease, unspecified; F02.80 Dementia in other diseases classified elsewhere, unspecified severity, without behavioral disturbance, psychotic disturbance, mood disturbance, and anxiety; F32.9 Major depressive disorder, single episode, unspecified; E66.9 Obesity, unspecified; Z87.891 Personal history of nicotine dependence; Z79.899 Other long term (current) drug therapy; Z79.82 Long term (current) use of aspirin; Z79.01 Long term (current) use of anticoagulants; Z86.711 Personal history of pulmonary embolism; Z88.1 Allergy status to other antibiotic agents; Z88.8 Allergy status to other drugs, medicaments and biological substances; Z88.5 Allergy status to narcotic agent; Z91.041 Radiographic dye allergy status; W19.XXXA Unspecified fall, initial encounter; Z68.27 Body mass index [BMI] 27.0-27.9, adult
CPT/HCPCS: 36415; 36430; 70450; 73200-LT; 73502-LT; 80048; 80053; 81001; 83550; 84443; 85018; 85025; 85027; 85610; 86850; 86900; 86901; 86920; 86922; 93005; 93010; 99285-25; A9270-GY; J7030; P9016

== ENCOUNTER 2023-10-30 15:27 | Emergency (ER) | payer MEDICARE, OTHER ==
[2023-10-30 16:04] VITALS: BP 152/69; PULSE 70
[2023-10-30 17:36] LABS: BASOPHILS ABSOLUTE AUTO 0.04 K/uL (0.00-0.10); BASOPHILS PERCENT AUTO 0.5 % (0.1-1.3); EOSINOPHILS ABSOLUTE AUTO 0.28 K/uL (0.00-0.40); EOSINOPHILS PERCENT AUTO 3.8 % (0.0-5.4); HEMATOCRIT 30.3 % (34.3-46.0); HEMOGLOBIN 10.2 g/dL (11.2-15.5); IMMATURE GRAN PERCENT AUTO 0.1 % (0.0-0.7); LYMPHOCYTES ABSOLUTE AUTO 1.91 K/uL (0.8-3.3); MEAN CORPUSCULAR HEMOGLOBIN 30.4 pg (31.6-35.5); MEAN CORPUSCULAR HGB CONC 33.7 g/dL (31.6-35.5); MEAN CORPUSCULAR VOLUME 90.2 fL (81.4-99.0); MONOCYTES ABSOLUTE AUTO 0.58 K/uL (0.20-0.90); MONOCYTES PERCENT AUTO 7.9 % (3.3-12.6); NEUTROPHILS ABSOLUTE AUTO 4.52 K/uL (1.0-7.6); NEUTROPHILS PERCENT AUTO 61.7 % (40.0-78.1); PLATELET COUNT,PLT 290 K/uL (130-375); RED BLOOD CELL COUNT 3.36 M/uL (3.77-5.24); WHITE BLOOD CELL COUNT,WBC 7.3 K/uL (3.2-11.0)
[2023-10-30 17:41] LABS: IMMATURE GRAN ABSOLUTE AUTO 0.01 K/uL (0.00-0.23)
[2023-10-30 17:53] LABS: BLOOD UREA NITROGEN,BUN 26 mg/dL (7-18); CALCIUM 9.8 mg/dL (8.5-10.1); CARBON DIOXIDE,CO2 27 mmol/L (21-32); CHLORIDE,CL 103 mmol/L (100-108); CREATININE 1.2 mg/dL (0.6-1.0); EST CRCL DRUG DOSING (CG) 31.21 mL/min; ESTIMATED GFR 45 mL/min (>60); GLUCOSE RANDOM 97 mg/dL (74-106); INR 2.5; POTASSIUM,K 3.8 mmol/L (3.6-5.2); PROTHROMBIN TIME 24.6 sec (9.2-10.6); SODIUM,NA 138 mmol/L (140-148)
[2023-10-30 17:59] LABS: ANION GAP 11.8 mmol/L (5.0-14.0); C-REACTIVE PROTEIN < 0.50 mg/dL (<0.50)
[2023-10-30] MEDS ORDERED: Doxycycline 100 MG Cap PO ONE (18:06)
[2023-10-30] MEDS ORDERED: Sulfamethoxazole/Trimethoprim 800-160 MG Tab PO ONE (18:06)
== END 2023-10-30 18:39 | disposition home or self-care (01) ==
LOC: JP.ED 15:27
DX: L03.115 Cellulitis of right lower limb (principal); I25.10 Atherosclerotic heart disease of native coronary artery without angina pectoris; E78.00 Pure hypercholesterolemia, unspecified; I10 Essential (primary) hypertension; Z91.041 Radiographic dye allergy status; Z88.1 Allergy status to other antibiotic agents; Z88.5 Allergy status to narcotic agent; Z88.8 Allergy status to other drugs, medicaments and biological substances; Z79.82 Long term (current) use of aspirin; Z79.01 Long term (current) use of anticoagulants; Z79.899 Other long term (current) drug therapy; Z79.51 Long term (current) use of inhaled steroids; Z86.16 Personal history of COVID-19; Z90.710 Acquired absence of both cervix and uterus
CPT/HCPCS: 36415; 80048; 85025; 85610; 86140; 99283

== ENCOUNTER 2024-05-04 18:05 | Emergency (ER) | payer MEDICARE, OTHER ==
[2024-05-04 18:32] LABS: BASOPHILS ABSOLUTE AUTO 0.03 K/uL (0.00-0.10); BASOPHILS PERCENT AUTO 0.4 % (0.1-1.3); EOSINOPHILS ABSOLUTE AUTO 0.11 K/uL (0.00-0.40); EOSINOPHILS PERCENT AUTO 1.3 % (0.0-5.4); HEMATOCRIT 28.9 % (34.3-46.0); HEMOGLOBIN 9.6 g/dL (11.2-15.5); IMMATURE GRAN PERCENT AUTO 0.2 % (0.0-0.7); LYMPHOCYTES ABSOLUTE AUTO 1.16 K/uL (0.8-3.3); LYMPHOCYTES PERCENT AUTO 13.6 % (11.4-47.7); MEAN CORPUSCULAR HEMOGLOBIN 29.6 pg (31.6-35.5); MEAN CORPUSCULAR HGB CONC 33.2 g/dL (31.6-35.5); MEAN CORPUSCULAR VOLUME 89.2 fL (81.4-99.0); MONOCYTES ABSOLUTE AUTO 0.51 K/uL (0.20-0.90); NEUTROPHILS ABSOLUTE AUTO 6.71 K/uL (1.0-7.6); NEUTROPHILS PERCENT AUTO 78.5 % (40.0-78.1); PLATELET COUNT,PLT 312 K/uL (130-375); RED BLOOD CELL COUNT 3.24 M/uL (3.77-5.24); WHITE BLOOD CELL COUNT,WBC 8.5 K/uL (3.2-11.0)
[2024-05-04 18:34] LABS: IMMATURE GRAN ABSOLUTE AUTO 0.02 K/uL (0.00-0.23)
[2024-05-04] MEDS: Sodium Chloride 0.9% 1,000 ML IV ONE (18:37)
[2024-05-04] MEDS: Sodium Chloride 0.9% 10 ML Syringe FLUSH PRN (18:37)
[2024-05-04 18:54] LABS: A/G RATIO 0.8 (1.2-2.2); ALANINE AMINOTRANSFERASE,ALT 11 U/L (12-78); ALBUMIN 3.2 g/dL (3.4-5.0); ALKALINE PHOSPHATASE 71 U/L (46-116); ASPARTATE AMNIOTRANSFERASE,AST 12 U/L (15-37); BILIRUBIN TOTAL 0.4 mg/dL (0.2-1.0); BLOOD UREA NITROGEN,BUN 32 mg/dL (7-18); CALCIUM 9.7 mg/dL (8.5-10.1); CARBON DIOXIDE,CO2 30 mmol/L (21-32); CHLORIDE,CL 101 mmol/L (100-108); EST CRCL DRUG DOSING (CG) 19.51 mL/min; ESTIMATED GFR 24 mL/min (>60); GLUCOSE RANDOM 117 mg/dL (74-106); POTASSIUM,K 3.8 mmol/L (3.6-5.2); SODIUM,NA 138 mmol/L (140-148)
[2024-05-04 19:00] LABS: ANION GAP 10.8 mmol/L (5.0-14.0); C-REACTIVE PROTEIN < 0.50 mg/dL (<0.50)
[2024-05-04 19:16] LABS: INR 2.5; PROTHROMBIN TIME 24.7 sec (9.2-10.6)
[2024-05-04 21:18] LABS: APPEARANCE,URINE CLEAR (CLEAR); BILIRUBIN,URINE NEGATIVE (NEGATIVE); COLOR,URINE YELLOW (YELLOW); GLUCOSE,URINE NEGATIVE (NEGATIVE); KETONES,URINE NEGATIVE (NEGATIVE); LEUKOCYTE ESTERASE,URINE NEGATIVE (NEGATIVE); NITRITE,URINE NEGATIVE (NEGATIVE); OCCULT BLOOD,URINE NEGATIVE (NEGATIVE); PH,URINE 5.5 (5.0-8.0); PROTEIN,URINE NEGATIVE (NEGATIVE); UROBILINOGEN,URINE 0.2 EU/dL (0.2-1.0)
[2024-05-04 21:23] LABS: AMORPHOUS SEDIMENT,URINE NOT SEEN; BACTERIA,URINE RARE; EPITHELIAL CELLS,URINE NOT SEEN; MUCUS,URINE NOT SEEN; RBC,URINE 0-5 (0-5); WBC,URINE 0-5 (0-5)
[2024-05-05 07:22] VITALS: BP 104/58; PULSE 96
== END 2024-05-05 09:19 | disposition home or self-care (01) ==
LOC: JP.ED 18:05
DX: I95.9 Hypotension, unspecified (principal); I25.10 Atherosclerotic heart disease of native coronary artery without angina pectoris; I10 Essential (primary) hypertension; M19.90 Unspecified osteoarthritis, unspecified site; Z86.16 Personal history of COVID-19; Z90.710 Acquired absence of both cervix and uterus; Z96.659 Presence of unspecified artificial knee joint; Z88.1 Allergy status to other antibiotic agents; Z88.5 Allergy status to narcotic agent; Z88.8 Allergy status to other drugs, medicaments and biological substances; Z91.041 Radiographic dye allergy status; Z79.82 Long term (current) use of aspirin; Z79.01 Long term (current) use of anticoagulants; Z79.899 Other long term (current) drug therapy
CPT/HCPCS: 36415; 74018; 74018-26; 80053; 81001; 82272; 83605; 84145; 84484; 85025; 85610; 86140; 93005; 93010; 96360; 99284; 99285-25; J7030

== ENCOUNTER 2024-10-07 16:57 | Inpatient (IN) | payer MEDICARE, OTHER ==
[2024-10-07] MEDS ORDERED: Sodium Chloride 0.9% 10 ML Syringe FLUSH PRN (17:01)
[2024-10-07 17:14] LABS: BASOPHILS ABSOLUTE AUTO 0.03 K/uL (0.00-0.10); BASOPHILS PERCENT AUTO 0.3 % (0.1-1.3); EOSINOPHILS ABSOLUTE AUTO 0.09 K/uL (0.00-0.40); EOSINOPHILS PERCENT AUTO 0.8 % (0.0-5.4); HEMATOCRIT 27.1 % (34.3-46.0); HEMOGLOBIN 8.6 g/dL (11.2-15.5); IMMATURE GRAN ABSOLUTE AUTO 0.05 K/uL (0.00-0.23); IMMATURE GRAN PERCENT AUTO 0.4 % (0.0-0.7); LYMPHOCYTES PERCENT AUTO 7.9 % (11.4-47.7); MEAN CORPUSCULAR HEMOGLOBIN 27.4 pg (31.6-35.5); MEAN CORPUSCULAR HGB CONC 31.7 g/dL (31.6-35.5); MEAN CORPUSCULAR VOLUME 86.3 fL (81.4-99.0); MONOCYTES ABSOLUTE AUTO 0.36 K/uL (0.20-0.90); MONOCYTES PERCENT AUTO 3.2 % (3.3-12.6); NEUTROPHILS ABSOLUTE AUTO 9.98 K/uL (1.0-7.6); NEUTROPHILS PERCENT AUTO 87.4 % (40.0-78.1); PLATELET COUNT,PLT 335 K/uL (130-375); RED BLOOD CELL COUNT 3.14 M/uL (3.77-5.24); WHITE BLOOD CELL COUNT,WBC 11.4 K/uL (3.2-11.0)
[2024-10-07] MEDS ORDERED: Iopamidol 612 MG/ML 100 ML Bottle IV SCH (17:30)
[2024-10-07] MEDS ORDERED: Sodium Chloride 0.9% 80 ML IV SCH (17:30)
[2024-10-07 17:31] LABS: PROTHROMBIN TIME 20.2 sec (9.2-10.6)
[2024-10-07 17:35] LABS: A/G RATIO 0.9 (1.2-2.2); ALANINE AMINOTRANSFERASE,ALT 15 U/L (12-78); ALBUMIN 3.3 g/dL (3.4-5.0); ALKALINE PHOSPHATASE 83 U/L (46-116); ASPARTATE AMNIOTRANSFERASE,AST 16 U/L (15-37); BILIRUBIN TOTAL 0.5 mg/dL (0.2-1.0); BLOOD UREA NITROGEN,BUN 30 mg/dL (7-18); CALCIUM 9.9 mg/dL (8.5-10.1); CARBON DIOXIDE,CO2 29 mmol/L (21-32); CHLORIDE,CL 103 mmol/L (100-108); CREATININE 1.9 mg/dL (0.6-1.0); EST CRCL DRUG DOSING (CG) 20.19 mL/min; ESTIMATED GFR 26 mL/min (>60); GLUCOSE RANDOM 128 mg/dL (74-106); POTASSIUM,K 4.2 mmol/L (3.6-5.2); PROTEIN TOTAL,TP 6.8 g/dL (6.4-8.2); SODIUM,NA 139 mmol/L (140-148)
[2024-10-07 17:40] LABS: LACTIC ACID 2.9 mmol/L (0.4-2.0)
[2024-10-07 17:41] LABS: ANION GAP 11.2 mmol/L (5.0-14.0); C-REACTIVE PROTEIN < 0.50 mg/dL (<0.50)
[2024-10-07] MEDS: Sodium Chloride 0.9% 1,000 ML IV ONE (19:04)
[2024-10-07] MEDS: Piperacillin/Tazobactam 4.5 GM in Sodium Chloride 0.9% 100 ML IV ONE (19:10)
[2024-10-07] MEDS: Na Phos,M-B/Na Phos,DI-B 60 ML, Mineral Oil 50 ML, Docusate Sodium 400 MG, Magnesium Ci... RECTAL ONE (19:52)
[2024-10-07 20:06] LABS: APPEARANCE,URINE CLOUDY (CLEAR); BILIRUBIN,URINE NEGATIVE (NEGATIVE); COLOR,URINE YELLOW (YELLOW); GLUCOSE,URINE NEGATIVE (NEGATIVE); KETONES,URINE NEGATIVE (NEGATIVE); LEUKOCYTE ESTERASE,URINE LARGE (NEGATIVE); NITRITE,URINE POSITIVE (NEGATIVE); OCCULT BLOOD,URINE TRACE-INTACT (NEGATIVE); PH,URINE 6.5 (5.0-8.0); PROTEIN,URINE 30 mg/dL (NEGATIVE)
[2024-10-07 20:13] LABS: BACTERIA,URINE MODERATE; EPITHELIAL CELLS,URINE FEW; MUCUS,URINE NOT SEEN; RBC,URINE 0-5 (0-5); WBC,URINE PACKED (0-5)
[2024-10-07 20:14] LABS: AMORPHOUS SEDIMENT,URINE NOT SEEN
[2024-10-07] MEDS ORDERED: Acetaminophen 325 MG Tab PO PRN (20:36)
[2024-10-07] MEDS ORDERED: Sennosides/Docusate Sodium 50-8.6 MG Tab PO PRN (20:36)
[2024-10-07] MEDS ORDERED: Ondansetron 4 MG Tab.DIS PO PRN (20:36)
[2024-10-07] MEDS ORDERED: Magnesium Hydroxide 400 MG/5 ML Susp 30 ML Cup PO PRN (20:36)
[2024-10-07] MEDS: Polyethylene Glycol 3350 Powder 17 GM Packet PO SCH (21:08)
[2024-10-07] MEDS: Lactobacillus Rhamnosus GG (Probiotic) Cap PO SCH (21:08)
[2024-10-07] MEDS: Bisacodyl 5 MG Tab PO ONE (21:08)
[2024-10-07] MEDS: Melatonin 3 MG Tab PO PRN (21:09)
[2024-10-07] MEDS: Ondansetron 4 MG/2 ML SDV IV PRN (21:55)
[2024-10-07] MEDS: cefTRIAXone 1 GM in Sodium Chloride 0.9% 50 ML IV SCH (21:55)
[2024-10-07] MEDS: Sodium Chloride 0.9% 1,000 ML IV SCH (21:56)
[2024-10-08] MEDS: LORazepam 2 MG/ML SDV IVPUSH PRN (02:38)
[2024-10-08 04:13] LABS: HEMATOCRIT 25.5 % (34.3-46.0); HEMOGLOBIN 8.1 g/dL (11.2-15.5); MEAN CORPUSCULAR HEMOGLOBIN 27.3 pg (31.6-35.5); MEAN CORPUSCULAR HGB CONC 31.8 g/dL (31.6-35.5); MEAN CORPUSCULAR VOLUME 85.9 fL (81.4-99.0); RED BLOOD CELL COUNT 2.97 M/uL (3.77-5.24); WHITE BLOOD CELL COUNT,WBC 20.7 K/uL (3.2-11.0)
[2024-10-08 04:25] LABS: CALCIUM 8.8 mg/dL (8.5-10.1); CREATININE 1.9 mg/dL (0.6-1.0); EST CRCL DRUG DOSING (CG) 20.19 mL/min; POTASSIUM,K 4.2 mmol/L (3.6-5.2)
[2024-10-08 04:44] LABS: ANION GAP 12.2 mmol/L (5.0-14.0)
[2024-10-08] MEDS: Azithromycin 500 MG in Sodium Chloride 0.9% 150 ML IV ONE (06:13)
[2024-10-08 06:36] LABS: INR 2.8; PROTHROMBIN TIME 27.7 sec (9.2-10.6)
[2024-10-08] MEDS ORDERED: Warfarin 5 MG Tab PO SCH (09:00)
[2024-10-08] MEDS ORDERED: Non-Formulary Medication 1 Each (Dextran 70/Hypromellose [Artificial Tears] 1 EACH Dropere OP SCH (09:00)
[2024-10-08] MEDS ORDERED: Non-Formulary Medication 1 Each (Duloxetine [Cymbalta] 60 MG Cap) PO SCH (09:00)
[2024-10-08] MEDS: Hypromellose 0.3% Ophth Soln 15 ML Bottle EYEBOTH SCH (09:57)
[2024-10-08] MEDS: Allopurinol 100 MG Tab PO SCH (09:58)
[2024-10-08] MEDS: Aspirin 81 MG Tab.EC PO SCH (09:58)
[2024-10-08] MEDS: DULoxetine 20 MG Cap PO SCH (09:59)
[2024-10-08] MEDS: Lisinopril 10 MG Tab PO SCH (10:00)
[2024-10-08] MEDS: Pantoprazole 40 MG Tab.CR PO SCH (11:04)
[2024-10-08] MEDS: Timolol Maleate 0.5% Ophth Soln 5 ML Bottle EYELF SCH (11:18)
[2024-10-08] MEDS: Sodium Chloride 0.9% 500 ML IV SCH (12:30)
[2024-10-09 06:06] LABS: HEMATOCRIT 20.9 % (34.3-46.0); MEAN CORPUSCULAR HEMOGLOBIN 27.3 pg (31.6-35.5); MEAN CORPUSCULAR HGB CONC 32.5 g/dL (31.6-35.5); MEAN CORPUSCULAR VOLUME 83.9 fL (81.4-99.0); RED BLOOD CELL COUNT 2.49 M/uL (3.77-5.24); WHITE BLOOD CELL COUNT,WBC 18.3 K/uL (3.2-11.0)
[2024-10-09 06:18] LABS: HEMOGLOBIN 6.8 g/dL (11.2-15.5)
[2024-10-09 06:20] LABS: INR 3.7; PROTHROMBIN TIME 35.6 sec (9.2-10.6)
[2024-10-09 06:33] LABS: IRON,FE 6 ug/dL (50-170); PERCENT FE SATURATION 3 % (20-55); TOTAL IRON BINDING CAPACITY 215 ug/dl (250-450)
[2024-10-09 06:41] LABS: ANION GAP 7.1 mmol/L (5.0-14.0); CALCIUM 8.6 mg/dL (8.5-10.1); CREATININE 1.4 mg/dL (0.6-1.0); EST CRCL DRUG DOSING (CG) 27.4 mL/min; POTASSIUM,K 3.7 mmol/L (3.6-5.2)
[2024-10-09] MEDS: Sodium Ferric Gluconate Cmplex 250 MG in Sodium Chloride 0.9% 100 ML IV ONE (14:11)
[2024-10-09] MEDS: Cephalexin 250 MG Cap PO SCH (21:50)
[2024-10-10 05:44] LABS: HEMATOCRIT 22.3 % (34.3-46.0); HEMOGLOBIN 7.3 g/dL (11.2-15.5); MEAN CORPUSCULAR HEMOGLOBIN 27.5 pg (31.6-35.5); MEAN CORPUSCULAR HGB CONC 32.7 g/dL (31.6-35.5); MEAN CORPUSCULAR VOLUME 84.2 fL (81.4-99.0); RED BLOOD CELL COUNT 2.65 M/uL (3.77-5.24); WHITE BLOOD CELL COUNT,WBC 14.6 K/uL (3.2-11.0)
[2024-10-10 05:57] LABS: CALCIUM 8.6 mg/dL (8.5-10.1); CREATININE 1.3 mg/dL (0.6-1.0); EST CRCL DRUG DOSING (CG) 29.5 mL/min; POTASSIUM,K 3.7 mmol/L (3.6-5.2)
[2024-10-10 05:59] LABS: INR 2.6; PROTHROMBIN TIME 25.8 sec (9.2-10.6)
[2024-10-10 06:02] LABS: ANION GAP 9.7 mmol/L (5.0-14.0)
[2024-10-10 11:31] VITALS: BP 110/53; PULSE 66
== END 2024-10-10 13:05 | disposition home health service (06) | DRG 872 ==
LOC: JP.ED 16:57 → JP.MS 19:55 → OBSVTOIN 10-08 07:11
PROVIDERS: ADMIT Registered Nurse; ATTEND Internal Medicine
PROC: 3E03329 Introduction of Other Anti-infective into Peripheral Vein, Percutaneous Approach (ICD-10-PCS; principal; 2024-10-07)
PROC: 30233N1 Transfusion of Nonautologous Red Blood Cells into Peripheral Vein, Percutaneous Approach (ICD-10-PCS; 2024-10-09)
DX: A41.51 Sepsis due to Escherichia coli [E. coli] (principal); T80.89XA Other complications following infusion, transfusion and therapeutic injection, initial encounter; N17.9 Acute kidney failure, unspecified; E87.20 Acidosis, unspecified; N30.00 Acute cystitis without hematuria; T80.818A Extravasation of other vesicant agent, initial encounter; I50.32 Chronic diastolic (congestive) heart failure; Z66 Do not resuscitate; H54.7 Unspecified visual loss; I25.10 Atherosclerotic heart disease of native coronary artery without angina pectoris; E78.00 Pure hypercholesterolemia, unspecified; M54.9 Dorsalgia, unspecified; H40.9 Unspecified glaucoma; M1A.09X0 Idiopathic chronic gout, multiple sites, without tophus (tophi); I11.0 Hypertensive heart disease with heart failure; R65.20 Severe sepsis without septic shock; K59.09 Other constipation; G89.29 Other chronic pain; M79.7 Fibromyalgia; M81.0 Age-related osteoporosis without current pathological fracture; D63.8 Anemia in other chronic diseases classified elsewhere; D50.9 Iron deficiency anemia, unspecified; F32.A Depression, unspecified; F41.9 Anxiety disorder, unspecified; M19.90 Unspecified osteoarthritis, unspecified site; Z96.659 Presence of unspecified artificial knee joint; Z86.16 Personal history of COVID-19; Z87.81 Personal history of (healed) traumatic fracture; Z86.711 Personal history of pulmonary embolism; Z98.49 Cataract extraction status, unspecified eye; Z86.0100 Personal history of colon polyps, unspecified; Z87.442 Personal history of urinary calculi; Z86.718 Personal history of other venous thrombosis and embolism; Z88.8 Allergy status to other drugs, medicaments and biological substances; Z88.1 Allergy status to other antibiotic agents; Z91.041 Radiographic dye allergy status; Z88.5 Allergy status to narcotic agent; Z88.6 Allergy status to analgesic agent; Z88.4 Allergy status to anesthetic agent; Z79.899 Other long term (current) drug therapy; Z79.82 Long term (current) use of aspirin; Z79.01 Long term (current) use of anticoagulants; Z98.890 Other specified postprocedural states; Z90.710 Acquired absence of both cervix and uterus; I25.2 Old myocardial infarction; Y84.8 Other medical procedures as the cause of abnormal reaction of the patient, or of later complication, without mention of misadventure at the time of the procedure; Y92.89 Other specified places as the place of occurrence of the external cause
CPT/HCPCS: 36415 ×2; 71045 ×2; 74176 ×2; 80048; 80053; 81001; 83605 ×3; 83690; 85025; 85027; 85610 ×2; 86140; 87040 ×2; 87086; 87088; 87186; 93005; 96365; 99285; A9270 ×4; J0456; J0696; J2060; J2405; J2543; J7030 ×2; 36430; 82728; 83550; 86850; 86900; 86901; 86920; 86922; 93010; 96367; 96375; 97110-GP; 97162-GP; 97530-GP; 99222; 99232; 99238; G0378; J2916; P9016

== ENCOUNTER 2025-03-13 18:15 | Emergency (ER) | payer MEDICARE, OTHER ==
[2025-03-13 19:02] LABS: BASOPHILS ABSOLUTE AUTO 0.04 K/uL (0.00-0.10); BASOPHILS PERCENT AUTO 0.4 % (0.1-1.3); EOSINOPHILS ABSOLUTE AUTO 0.12 K/uL (0.00-0.40); EOSINOPHILS PERCENT AUTO 1.1 % (0.0-5.4); IMMATURE GRAN ABSOLUTE AUTO 0.04 K/uL (0.00-0.23); IMMATURE GRAN PERCENT AUTO 0.4 % (0.0-0.7); LYMPHOCYTES ABSOLUTE AUTO 1.05 K/uL (0.8-3.3); LYMPHOCYTES PERCENT AUTO 9.6 % (11.4-47.7); MONOCYTES ABSOLUTE AUTO 0.64 K/uL (0.20-0.90); MONOCYTES PERCENT AUTO 5.9 % (3.3-12.6); NEUTROPHILS ABSOLUTE AUTO 9.03 K/uL (1.0-7.6); NEUTROPHILS PERCENT AUTO 82.6 % (40.0-78.1); PLATELET COUNT,PLT 276 K/uL (130-375); RED BLOOD CELL COUNT 3.56 M/uL (3.77-5.24); WHITE BLOOD CELL COUNT,WBC 10.9 K/uL (3.2-11.0)
[2025-03-13 19:19] LABS: INR 2.6
[2025-03-13 19:26] LABS: A/G RATIO 0.9 (1.2-2.2); ALANINE AMINOTRANSFERASE,ALT 19 U/L (12-78); ASPARTATE AMNIOTRANSFERASE,AST 18 U/L (15-37); BILIRUBIN TOTAL 0.8 mg/dL (0.2-1.0); BLOOD UREA NITROGEN,BUN 28 mg/dL (7-18); CARBON DIOXIDE,CO2 30 mmol/L (21-32); CHLORIDE,CL 105 mmol/L (100-108); CREATININE 1.3 mg/dL (0.6-1.0); EST CRCL DRUG DOSING (CG) 30.10 mL/min; ESTIMATED GFR 41 mL/min (>60); GLUCOSE RANDOM 126 mg/dL (74-106); POTASSIUM,K 3.9 mmol/L (3.6-5.2); PROTEIN TOTAL,TP 7.1 g/dL (6.4-8.2); SODIUM,NA 142 mmol/L (140-148); TROPONIN I HIGH SENSITIVITY 11.7 pg/mL (<=60.3)
[2025-03-13 20:31] VITALS: BP 161/60; PULSE 89
== END 2025-03-13 21:16 | disposition home or self-care (01) ==
LOC: JP.ED 18:15
DX: S06.0XAA Concussion with loss of consciousness status unknown, initial encounter (principal); I10 Essential (primary) hypertension; E78.00 Pure hypercholesterolemia, unspecified; I25.10 Atherosclerotic heart disease of native coronary artery without angina pectoris; Z90.710 Acquired absence of both cervix and uterus; Z88.5 Allergy status to narcotic agent; Z91.041 Radiographic dye allergy status; Z88.8 Allergy status to other drugs, medicaments and biological substances; Z79.899 Other long term (current) drug therapy; Z87.891 Personal history of nicotine dependence; W20.8XXA Other cause of strike by thrown, projected or falling object, initial encounter
CPT/HCPCS: 36415; 70450; 72125; 73130-26-RT; 73130-RT; 73502-26-RT; 73502-RT; 76377; 80053; 84484; 85025; 85610; 93005; 99284